=== PATIENT | male | born 1945 | race Caucasian/White ===

== ENCOUNTER 2020-01-01 05:13 | Inpatient (IN) | payer MEDICARE ==
[2020-01-01] VITALS (7 sets, daily range): BP systolic 108–137; BP diastolic 71–112
[~2020-01-01] VITALS: Ht 180.3 cm; Wt 66.2 kg
[2020-01-01 05:44] LABS: BASOPHILS % 0.3 % (0.0-1.0); EOSINOPHILS # (AUTO) 0.1 (0.0-0.4); EOSINOPHILS % 0.9 % (0.0-6.0); HEMATOCRIT 31.9 % (38.2-49.6); HEMOGLOBIN 10.7 g/dL (14.0-18.0); LYMPHOCYTES # (AUTO) 0.8 (1.0-3.2); MEAN CORPUSCULAR HEMOGLOBIN 35.4 pg (28-32); MEAN CORPUSCULAR HGB CONC 33.5 g/dL (31-35); MEAN CORPUSCULAR VOLUME 105.6 fL (81-99); MONOCYTES # (AUTO) 0.6 (0.2-0.8); MONOCYTES % 5.8 % (4.4-11.3); NEUTROPHILS # (AUTO) 8.6 (2.1-6.9); NEUTROPHILS % 84.7 % (38.7-80.0); PLATELET COUNT 189 x10e3/uL (140-360); RED BLOOD COUNT 3.02 x10e6/uL (4.3-5.7); RED CELL DISTRIBUTION WIDTH 11.7 % (11.7-14.4)
--- NOTE | 2020-01-01 05:50 | Emergency Department Note ---
History of Present Illnes History of Present Illness Chief Complaint: General Medicine Complaints History of Present Illness This is a 74 year old male presents to ED with report of hallucinations since last night; pts family reports pt was recently prescribed Haldol and Aricept; pt denies any hallucinations at this time; pt also with mild productive cough for past couple of days. 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 Arrival Mode: [facility] Park [facility] Required: No Onset (how long ago): day(s) (1) Location: none Quality: reported hallucinations Radiation: Reports non-radiation Severity: moderate Onset quality: unable to specify Duration (how long): day(s) (1) Timing of current episode: unable to specify Context: Reports new medications (haldol and aricept); Denies recent illness, Denies recent surgery, Denies trauma/injury Relieving factors: none Exacerbating factors: none Associated symptoms: Reports cough (productive for last couple of days) Treatments prior to arrival: none (MILES GUTIERREZ MD) Past Medical/Family History Physician Review I have reviewed the patient's past medical and family history. Any updates have been documented here. (MILES GUTIERREZ MD) Past Medical History Recent Fever: No Clinical Suspicion of Infectio: No New/Unexplained Change in Ment: No (MILES GUTIERREZ MD) Social History Smoking Cessation: Former smoker Counseling Performed: No Alcohol Use: None Any Illegal Drug Use: No (MILES GUTIERREZ MD) Family History Family history of heart diseas: No (MILES GUTIERREZ MD) Other Any Pre-Existing Lines (PICC,: No (MILES GUTIERREZ MD) Review of Systems Review of Systems Constitutional: Reports no symptoms EENTM: Reports no symptoms Cardiovascular: Reports no symptoms Respiratory: Reports cough Gastrointestinal: Reports no symptoms Genitourinary: Reports no symptoms Musculoskeletal: Reports no symptoms Integumentary: Reports no symptoms Neurological: Reports as per HPI Psychological: Reports no symptoms Endocrine: Reports no symptoms Hematological/Lymphatic: Reports no symptoms (MILES GUTIERREZ MD) Physical Exam Related Data Allergies: Coded Allergies: Sulfa (Sulfonamide Antibiotics) (Verified Allergy, Intermediate, 01/01/20) diphenhydramine (Verified Allergy, Intermediate, 01/01/20) Triage Vital Signs Vital Signs Date Time Temp Pulse Resp B/P (MAP) Pulse Ox O2 Delivery O2 Flow Rate FiO2 01/01/20 05:31 98.9 71 18 133/66 99 Room Air Vital signs reviewed: Yes (MILES GUTIERREZ MD) Physical Exam CONSTITUTIONAL Constitutional: Present well-developed, Present well-nourished; Absent distressed HENT HENT: Present normocephalic, Present atraumatic, Present oropharynx clear/moist, Present nose normal HENT L/R: Present left ext ear normal, Present right ext ear normal EYES Eyes: Reports PERRL, Reports conjunctivae normal NECK Neck: Present ROM normal PULMONARY Pulmonary: Present effort normal, Present breath sounds normal CARDIOVASCULAR Cardiovascular: Present regular rhythm, Present heart sounds normal, Present capillary refill normal, Present normal rate GASTROINTESTINAL Abdominal: Present soft, Present nontender, Present bowel sounds normal GENITOURINARY Genitourinary: Present exam deferred SKIN Skin: Present warm, Present dry MUSCULOSKELETAL Musculoskeletal: Present ROM normal NEUROLOGICAL Neurological: Present alert, Present oriented x 3, Present no gross motor or sensory deficits PSYCHOLOGICAL Psychological: Present mood/affect normal, Present judgement normal (MILES GUTIERREZ MD) Results Laboratory Laboratory Laboratory Tests Test 01/01/20 05:28 (MILES GUTIERREZ MD) Lab results reviewed: Yes Laboratory comments Laboratory Tests Test 01/01/20 06:47 01/01/20 05:28 Urine Color Yellow (YELLOW) Urine Clarity Clear (CLEAR) Urine pH 8 (5 - 7) Urine Specific [place] 1.025 (1.010-1.025) Urine Protein Trace (NEGATIVE) Urine Glucose (UA) Negative (NEGATIVE) Urine Ketones 1+ (NEGATIVE) Urine Blood Negative (NEGATIVE) Urine Nitrite Negative (NEGATIVE) Urine Bilirubin Negative (NEGATIVE) Urine Urobilinogen 0.2 mg/dL (0.2 - 1) Urine Leukocyte Esterase Negative (NEGATIVE) Urine RBC 0-5 /HPF (0-5) Urine WBC 0-5 /HPF (0-5) Urine Epithelial Cells Few /LPF (NONE) Urine Bacteria Rare /HPF (NONE) White Blood Count 10.15 x10e3/uL (4.8-10.8) Red Blood Count 3.02 x10e6/uL (4.3-5.7) Hemoglobin 10.7 g/dL (14.0-18.0) Hematocrit 31.9 % (38.2-49.6) Mean Corpuscular Volume 105.6 fL (81-99) Mean Corpuscular Hemoglobin 35.4 pg (28-32) Mean Corpuscular Hemoglobin Concent 33.5 g/dL (31-35) Red Cell Distribution Width 11.7 % (11.7-14.4) Platelet Count 189 x10e3/uL (140-360) Neutrophils (%) (Auto) 84.7 % (38.7-80.0) Lymphocytes (%) (Auto) 8.0 % (18.0-39.1) Monocytes (%) (Auto) 5.8 % (4.4-11.3) Eosinophils (%) (Auto) 0.9 % (0.0-6.0) Basophils (%) (Auto) 0.3 % (0.0-1.0) Neutrophils # (Auto) 8.6 (2.1-6.9) Lymphocytes # (Auto) 0.8 (1.0-3.2) Monocytes # (Auto) 0.6 (0.2-0.8) Eosinophils # (Auto) 0.1 (0.0-0.4) Basophils # (Auto) 0.0 (0.0-0.1) Absolute Immature Granulocyte (auto 0.03 x10e3/uL (0-0.1) Sodium Level 141 mmol/L (136-145) Potassium Level 3.9 mmol/L (3.5-5.1) Chloride Level 107 mmol/L (98-107) Carbon Dioxide Level 24 mmol/L (22-29) Anion Gap 13.9 mmol/L (8-16) Blood Urea Nitrogen 12 mg/dL (7-26) Creatinine 1.34 mg/dL (0.72-1.25) Estimat Glomerular Filtration Rate 52 ML/MIN (60-) BUN/Creatinine Ratio 9 (6-25) Glucose Level 95 mg/dL (74-118) Calcium Level 10.0 mg/dL (8.4-10.2) Total Bilirubin 0.5 mg/dL (0.2-1.2) Aspartate Amino Transf (AST/SGOT) 21 IU/L (5-34) Alanine Aminotransferase (ALT/SGPT) 33 IU/L (0-55) Alkaline Phosphatase 58 IU/L (40-150) Total Protein 7.3 g/dL (6.5-8.1) Albumin 3.4 g/dL (3.5-5.0) Globulin 3.9 g/dL (2.3-3.5) Albumin/Globulin Ratio 0.9 (0.8-2.0) (EDVIN JENKINS DO) Imaging Imaging results reviewed: Yes Impressions IMPRESSION: Lateral right upper lobe mild haziness, could be artifactual due to overlying soft tissue attenuation or represent pneumonia in the appropriate clinical context. Right lower lobe linear atelectasis/scarring. Signed by: Dr. Michael Bond MD on 01/01/2020 6:51 AM Imaging Comments IMPRESSION: No acute intracranial abnormality. Mild supratentorial white matter microvascular ischemic changes. 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 Signed by: Dr. Sophia Cifuentes M.D. on 01/01/2020 6:33 AM (EDVIN JENKINS DO) Procedures 12 Lead ECG Interpretation ECG Interpretation : ECG: ECG 1 Park Guard: Interpreted by ED physician Date: Jan 01, 2020 Time: 05:24 Rhythm: sinus rhythm Rate: normal BPM: 68 Conduction: bifascicular block ST segments normal: No (non specific changes) T waves normal: Yes Clinical Impression: abnormal ECG (MILES GUTIERREZ MD) Assessment & Plan Medical Decision Making MDM pt with h/o parkinson's recently started on aricept and haldol with reported hallucinations all night last night, was talking to people who were not there cbc, cmp, ua, cxr, ct brain ordered to eval for electrolyte abnormality, uti, pneumonia, intracranial pathology(mass, cva, bleed), [address] jenkins labs, cxr, ct brain pending (MILES GUTIERREZ MD) MDM Signout obtained from Dr. Gutierrez to follow-up lab work and imaging. Patient with underlying dementia sent to the ED for hallucinations. Patient's chest x- ray concerning for pneumonia and proceeding may be a cause of exacerbation of his dementia leading to hallucinations. Patient was admitted for IV antibiotics, family informed. Patient stable at time of admission. (EDVIN JENKINS DO) Assessment & Plan Final Impression: (1) Hallucinations (2) Parkinson disease (MILES GUTIERREZ MD) Depart Disposition: ADMITTED Last Vital Signs Date Time Temp Pulse Resp B/P (MAP) Pulse Ox O2 Delivery O2 Flow Rate FiO2 10/19/20 05:31 98.9 71 18 133/66 99 Room Air (MILES GUTIERREZ MD) MILES GUTIERREZ MD Jan 01, 2020 05:50 EDVIN JENKINS DO Jan 01, 2020 08:20
[2020-01-01 05:58] LABS: ALBUMIN 3.4 g/dL (3.5-5.0); ALBUMIN/GLOBULIN RATIO 0.9 (0.8-2.0); ANION GAP 13.9 mmol/L (8-16); CREATININE, SERUM 1.34 mg/dL (0.72-1.25); POTASSIUM 3.9 mmol/L (3.5-5.1)
--- OUTSIDE RECORDS SUMMARY | 2020-01-01 06:06 | XMS REPORT | Clinical Summary ---
Author Author [facility] Organization [facility] Address Unknown Phone Unavailable Care Team Providers Care Tipple Worker Name Role Phone Bev Ramirez MD PCP Allergies Comments Active Allergy Reactions Severity Noted Date Diphenhydramine Hcl Hives Medium 05/01/2015 Sulfa (Sulfonamide Hives Medium 05/01/2015 Antibiotics) Sulfur-8 Hives Medium 05/23/2015 Medications End Date Status Medication Sig Dispensed Refills Start Date Active cetirizine (ZyrTEC) 10 MG Take 10 mg by 0 tablet mouth daily. Active cholecalciferol, vitamin Take 2,000 0 D3, (VITAMIN D3) 2,000 Units by unit capsule capsule mouth daily. Active vitamin V26-ssccz acid Take by mouth 0 0.5-1 mg tablet as needed. Active FLONASE ALLERGY RELIEF 50 1 spray by 0 / 5 mcg/actuation nasal spray Each Nare 8 route as needed. Active tiotropium (SPIRIVA) 18 Place 1 0 mcg per inhalation capsule into capsule inhaler and inhale once daily. Active fexofenadine (HECTOR) Take 180 mg 0 180 MG tablet by mouth daily. Active benzonatate (TESSALON) Take 100 mg 0 100 MG capsule by mouth 3 (three) times a day as needed for cough. Active ezetimibe-simvastatin TAKE 1 TABLET 90 tablet 2 (VYTORIN) 10-40 mg per BY MOUTH 0 tablet EVERY DAY Active Symbicort 160-4.5 TAKE 2 PUFFS 3 Inhaler 2 07/30/ 02 mcg/actuation inhaler BY MOUTH 0 TWICE A DAY Active buPROPion XL (WELLBUTRIN TAKE 1 TABLET 90 tablet 4 XL) 150 MG 24 hr tablet BY MOUTH 0 EVERY DAY 05/09/2019 Discontinued ezetimibe-simvastatin TAKE 1 TABLET 90 tablet 2 06 /10/201 (VYTORIN) 10-40 mg per BY MOUTH 9 tablet EVERY DAY 06/12/2019 Discontinued SYMBICORT 160-4.5 INHALE 2 10.2 Inhaler 6 01 mcg/actuation inhaler PUFFS 2 (TWO) 9 TIMES A DAY. 11/08/2019 Discontinued buPROPion XL (WELLBUTRIN TAKE 1 TABLET 30 tablet 11 XL) 150 MG 24 hr tablet BY MOUTH 9 EVERY DAY 07/31/2019 Discontinued Symbicort 160-4.5 INHALE 2 1 Inhaler 2 06/12/19 2 mcg/actuation inhaler PUFFS 2 (TWO) 0 TIMES A DAY. 12/04/2019 Discontinued buPROPion XL (WELLBUTRIN TAKE 1 TABLET 30 tablet 11 XL) 150 MG 24 hr tablet BY MOUTH 0 EVERY DAY Active Problems Problem Noted Date History of colon polyps 10/06/2018 Overview: Added automatically from request for christiano escobar [id number] Intestinal mass 10/01/2017 Abnormal cardiovascular stress test 05/11/2015 Atherosclerosis of coronary artery 05/11/2015 Atopic rhinitis 05/01/2015 Bronchitis 05/01/2015 Cough 05/01/2015 Echocardiogram abnormal 05/01/2015 Abnormal electrocardiogram 05/01/2015 Hearing loss 05/01/2015 Episodic mood disorder 05/01/2015 Hypercholesteremia 05/01/2015 Pain in wrist 05/01/2015 Reactive airway disease 05/01/2015 Encounters Care Team Description Date Type Specialty Sara Harris MA 12/20/2019 Telephone Hematology Bev Ramirez MD 12/04/2019 Refill Internal Medicine Omar Gillespie MA Anemia, unspecified type (Primary Dx) 11/16/2019 Orders Only Internal Medicine Bev Ramirez MD Macrocytic anemia (Primary Dx) 11/16/2019 Orders Only Internal Medicine Bev Ramirez MD 11/08/2019 Refill Internal Medicine Bev Ramirez MD Macrocytosis (Primary Dx); Tremor; Depression, unspecified depression type; Chronic bronchitis, unspecified chronic bronchitis type (HCC) 10/31/2019 Telemedicine Internal Medicine Bev Ramirez MD 07/31/2019 Refill Internal Medicine Bev Ramirez MD Encounter for general adult medical exam ination with abnormal findings (Primary Dx); Depression, unspecified depression type; Chronic bronchitis, unspecified chronic bronchitis type (HCC); Hyperlipidemia, unspecified hyperlipidemia type; B12 deficiency 07/28/2019 Telemedicine Internal Medicine 07/05/2019 Travel Bev Ramirez MD 06/10/2019 Refill Internal Medicine eBv Ramirez MD 05/09/2019 Refill Internal Medicine Bev Ramirez MD Tremor (Primary Dx); Mood disorder (HCC); Depression, unspecified depression type; Chronic bronchitis, unspecified chronic bronchitis type (HCC); Allergic rhinitis, unspecified seasonality, unspecified trigger; Pain of left hand 01/27/2019 Office Visit Internal Medicine after 12/31/2018 Immunizations Name Administration Dates Next Due FLUZONE HIGH-DOSE PF 11/24/2018, 12/23/2015, , 03/15/2013 Influenza, Unspecified 12/22/2017 Pneumococcal Conjugate 05/16/2014 13-Valent Pneumococcal 05/23/2015 Polysaccharide Tdap 05/16/2014 Zoster 12/25/2014 Zoster Vaccine 01/24/2019 Recombinant Surgical History Surgery Date Site/Laterality Comments FOOT SURGERY 03/15/2011 - Bilateral x2 fusion bone together, right foot 2008 03/14/2012 HAND SURGERY 03/15/1979 - Bilateral x2 1979 and 198 0 03/14/1980 VASECTOMY 03/15/1974 - 03/14/1975 REPAIR, HERNIA, INGUINAL 06/09/2016 Groin/Right Proce dure: OPEN RIGHT INGUINALHERNIA REPAIR; Surgeon: Barron Cancino MD; Lo cation: [facility]; Service: General; Laterality : Right; Medical devices from this surgery are i n the Implants section. COLONOSCOPY 09/14/2017 N/A Procedure: colo noscopy with bx and injected 4cc of spot to ricardo mass; Surgeon: Samantha Rasheed MD; Location: [facility]; Service : Gastroenterology; Laterality: N/A; diverticulosis, colon mass, hemorrhoids HEMICOLECTOMY, RIGHT, 10/01/2017 Abdomen/N/A Procedur e: LAPAROSCOPIC RIGHT HEMICOLECTOMY; LAPAROSCOPIC Surgeon: Barron Cancino MD; Location: [facility]; Service: General; Laterality : N/A; Medical devices from this surgery are i n the Implants section. COLONOSCOPY COLONOSCOPY 10/21/2018 N/A Procedure: COLO NOSCOPY with bx; Surgeon: Samantha Rasheed MD; Location: [facility]; Service: Gastroenterology; Laterality: N/A; diverticulosis, colon polyp,internal he morrhoids, extent reached is anastamosis Medical History Medical History Date Comments Atopic rhinitis 05/01/2015 Bronchitis 05/01/2015 Echocardiogram abnormal 05/01/2015 Abnormal electrocardiogram 05/01/2015 Hearing loss 05/01/2015 hearing aide alen Hypercholesteremia 05/01/2015 Reactive airway disease 05/01/2015 Abnormal cardiovascular stress test 05/11/2015 Anesthesia Pt....nphap. CFROM / Family .....nfhap Exercises daily walking x 30 mins....denies problems Anemia Arthritis hands Anxiety medication managed CAD (coronary artery disease) RCA Cancer (HCC) h/o skin cancers Uses hearing aid Colon polyp TUBULAR ADENOMA Family History Medical History Relation Name Comments Balta disease Brother No Known Problems Brother CABG/Stent Father No Known Problems Sister Relation Name Status Comments Brother Brother Father Mother Sister Alive Social History Date Tobacco Use Types Packs/Day Years Used Quit: 06/09/1997 Former Smoker Cigarettes, 0.25 12 Electronic Cigarettes Smokeless Tobacco: Never Used Tobacco Cessation: Ready to Quit: Yes; C ounseling Given: Yes Comments: recently quit 03/2017 Drinks/Week oz/Week Comments Alcohol Use rare Yes Sex Assigned at Date Recorded Not on file Last Filed Vital Signs Reading Time Taken Comments Vital Sign 128/72 10/30/2019 1:23 PM CDT Blood Pressure 67 01/27/2019 10:38 AM TEMPERER Pulse 36.4 C (97.6 F) 01/27/2019 10:38 AM TEMPERER Temperature 16 01/27/2019 10:38 AM TEMPERER Respiratory Rate 97% 01/27/2019 10:38 AM TEMPERER Oxygen Saturation - - Inhaled Oxygen Concentration 73.9 kg (163 lb) 10/30/2019 1:23 PM CDT Weight 180.3 cm (5' 11") 10/30/2019 1:23 PM CDT Height 22.73 10/30/2019 1:23 PM CDT Body Mass Index Plan of Treatment Health Maintenance Due Date Last Done Comments INFLUENZA VACCINE 10/14/2019 11/24/2018, 12/22/2017, 12/23/2015, Additional history exists COLONOSCOPY SCREENING 09/27/2027 09/26/2017 65+ PNEUMOCOCCAL VACCINE Completed 05/23/2015, 05/16/2014 SHINGLES VACCINES Completed 01/24/2019, 12/25/2014 Implants Device Identifier Shelf Expiration Date Model / Serial / L ot Implanted Type Area Manufactur er 11/09/2020 [id number] / / Bard Mesh Perfix Plugs Large Perfix IPM GRAFTS Right: Leslee in DAVOL, A Plug,1.6&Quot; X 1.90&Quot; (4.1cm BARD X 4.8cm) - [id number] Implanted: Qty: 1 on 06/09/2016 by Barron Cancino MD at [facility] [id number] / / Clip Ligtng Weck Hemoclip Plus W/ Medical N/A: N/A WECK Tape Ti Med Lg - [id number] Clips for CLOSURE Implanted: Qty: 1 on 10/01/2017 by Internal SYS TEMS Barron Cancino MD at [facility] [id number] / / Clip Ligtng Weck Hemoclip Plus W/ Medical N/A: N/A TELEFLEX Tape Ti Lg - [id number] Clips for MEDICAL Implanted: Qty: 1 on 10/01/2017 by Internal Barron Cancino MD at [facility] [id number] / / Clip Ligtng Weck Hemoclip Plus W/ Medical N/A: N/A TELEFLEX Tape Ti Lg - [id number] Clips for MEDICAL Implanted: Qty: 1 on 10/01/2017 by Internal Barron Cancino MD at [facility] 10/12/2021 [id number] / / [id number] [employer] Titanium Ligating Clips, Surgical N/A: N/A Medium (Cartridge Of 6 Clips, Pack Fixation Of 30 Cartridges) Device Implanted: Qty: 1 on 10/01/2017 by Barron Cancino MD at [facility] [id number] / / Clip Ligtng Hrzn Med Ti Strl 6ea/Cq Surgical N/A: N/A WECK - [id number] Implants; CLOSURE Implanted: Qty: 1 on 10/01/2017 by Expanders; SYS TEMBarron Baumann MD at [facility] Extenders; HOSPITAL Surgical Wires Procedures Comments Procedure Name Priority Date/Time Associated Diag nosis COMPREHENSIVE METABOLIC Routine 11/15/2019 Macroc ytosis PANEL 9:15 AM CDT CBC WITH PLATELET AND Routine 11/15/2019 Macrocyt osis DIFFERENTIAL 9:15 AM CDT VITAMIN B12 LEVEL Routine 08/01/2019 Encounter fo r general 10:31 AM CDT adult medical examination with abnormal findings Depression, unspecified depression type Chronic bronchitis, unspecified chronic bronchitis type (HCC) Hyperlipidemia, unspecified hyperlipidemia type B12 deficiency THYROID STIMULATING Routine 08/01/2019 Encounter for general HORMONE 10:31 AM CDT adult medical exami [facility] with abnormal findings Depression, unspecified depression type Chronic bronchitis, unspecified chronic bronchitis type (HCC) Hyperlipidemia, unspecified hyperlipidemia type B12 deficiency URINALYSIS, COMPLETE, Routine 08/01/2019 Encounte r for general WITH REFLEX TO CULTURE 10:31 AM CDT adult medical examination with abnormal findings Depression, unspecified depression type Chronic bronchitis, unspecified chronic bronchitis type (HCC) Hyperlipidemia, unspecified hyperlipidemia type B12 deficiency LIPID PANEL Routine 08/01/2019 Encounter for g eneral 10:31 AM CDT adult medical examination with abnormal findings Depression, unspecified depression type Chronic bronchitis, unspecified chronic bronchitis type (HCC) Hyperlipidemia, unspecified hyperlipidemia type B12 deficiency COMPREHENSIVE METABOLIC Routine 08/01/[address] for general PANEL 10:31 AM CD[facility] Depression, unspecified depression type Chronic bronchitis, unspecified chronic bronchitis type (HCC) Hyperlipidemia, unspecified hyperlipidemia type B12 deficiency CBC HEMOGRAM Routine 08/01/2019 Encounter for g eneral 10:31 AM CDT adult medical examination with abnormal findings Depression, unspecified depression type Chronic bronchitis, unspecified chronic bronchitis type (HCC) Hyperlipidemia, unspecified hyperlipidemia type B12 deficiency after 12/31/2018 Results * CBC with platelet and differential (11/15/2019 9:15 AM CDT) Pathologist [facility] WBC 5.8 3.8 - 10.8 [facility] Thousand/uL [facility] [place] RBC 3.32 (L) 4.20 - 5.80 [facility] Million/uL [facility] [place] HGB 11.9 (L) 13.2 - 17.1 g/dL [facility] [place] HCT 33.8 (L) 38.5 - 50.0 % [facility] [employer] [place] MCV 101.8 (H) 80.0 - 100.0 fL [facility] [place] MCH 35.8 (H) 27.0 - 33.0 pg [facility] [place] MCHC 35.2 32.0 - 36.0 g/dL [facility] [place] RDW 11.5 11.0 - 15.0 % [facility] [place] Platelet count 223 140 - 400 [facility] Thousand/uL [facility] [place] MPV 9.5 7.5 - 12.5 fL [facility] [employer] [place] Neutrophils, 3,666 1,500 - 7,800 [facility] absolute cells/uL [facility] [place] Lymphocytes, 1,357 850 - 3,900 cells/uL [facility] absolute [facility] [place] Monocytes, 429 200 - 950 cells/uL [facility] absolute [facility] [place] Eosinophils, 319 15 - 500 cells/uL [facility] absolute [facility] [place] Basophils, 29 0 - 200 cells/uL [facility] absolute [facility] [place] Neutrophils 63.2 % [employer] [place] Lymphocytes 23.4 % [employer] [place] Monocytes 7.4 % [facility] [place] Eosinophils 5.5 % [facility] [employer] [place] Basophils + RC 0.5 % [employer] [place] Specimen Blood Narrative Performed At FASTING:YES [facility] FASTING: YES Resulting Agency Comment Performing Organization Information: Site ID: RGA Name: [facility] Address: [address] [place] [phone] Director: Baldev Briscoe Performing Organization Address City/State/ZIP Code P lico Number [facility] [email or web address] [address] [phone] * Comprehensive metabolic panel (11/15/2019 9:15 AM CDT) Only the most recent of 2 results within the time period is included. Glucose 102 (H) 65 - 99 mg/dL [facility] Comment: DIAGNOSTICS Fasting [place] reference interval For someone without known diabetes, a glucose value between 100 and 125 mg/dL is consistent with prediabetes and should be confirmed with a follow-up test. BUN 14 7 - 25 mg/dL [facility] Creatinine 1.21 (H) 0.70 - 1.18 mg/dL [facility] Comment: DIAGNOSTICS For patients >49 years of age, [place] the reference limit for Creatinine is approximately 13% higher for people identified as -Azerbaijani. EGFR Non-Afr. 59 (L) > OR = 60 [facility] Azerbaijani mL/min/1.73m2 [facility] [place] EGFR 68 > OR = 60 [facility] Azerbaijani mL/min/1.73m2 [facility] [place] BUN/creatinine 12 6 - 22 (calc) [facility] ratio [facility] [place] Sodium 138 135 - 146 mmol/L [facility] [place] Potassium 4.4 3.5 - 5.3 mmol/L [facility] [place] Chloride 106 98 - 110 mmol/L [facility] [place] CO2 26 20 - 32 mmol/L [facility] [place] Calcium 9.9 8.6 - 10.3 mg/dL [facility] [place] Protein 6.9 6.1 - 8.1 g/dL [facility] [place] Albumin, S 4.0 3.6 - 5.1 g/dL [facility] [place] Globulin, total 2.9 1.9 - 3.7 g/dL [facility] (calc) [facility] [place] Albumin/globuli 1.4 1.0 - 2.5 (calc) [facility] n ratio [facility] [place] Total bilirubin 0.4 0.2 - 1.2 mg/dL [facility] [place] Alkaline 38 35 - 144 U/L [facility] phosphatase [facility] [place] AST 25 10 - 35 U/L [facility] [place] ALT 21 9 - 46 U/L [facility] [place] Specimen Blood Narrative Performed At FASTING:YES [facility] FASTING: YES Resulting Agency Comment Performing Organization Information: Site ID: [id number] Name: [facility] Address: [address] [place] [phone] Director: Baldev Briscoe Performing Organization Address City/State/ZIP Code P lico Number [facility] [email or web address] [address] [phone] * URINALYSIS, COMPLETE, WITH REFLEX TO CULTURE (08/01/2019 10:31 AM CDT) Color, UA YELLOW YELLOW [facility] [place] Appearance CLEAR CLEAR [facility] [place] Specific 1.022 1.001 - 1.035 [facility] gravity, urine [facility] [place] pH, urine 6.0 5.0 - 8.0 [facility] [place] Glucose, urine NEGATIVE NEGATIVE [facility] [place] Bilirubin, UA NEGATIVE NEGATIVE [facility] [place] Ketones, UA NEGATIVE NEGATIVE [facility] [place] Occult blood, NEGATIVE NEGATIVE [facility] urine [facility] [place] Protein, UA NEGATIVE NEGATIVE [facility] [place] Nitrite, UA NEGATIVE NEGATIVE [facility] [place] Leukocyte NEGATIVE NEGATIVE [facility] esterase, UA [facility] [place] WBC, UA NONE SEEN < OR = 5 /HPF [facility] [place] RBC, UA NONE SEEN < OR = 2 /HPF [facility] [place] Squamous NONE SEEN < OR = 5 /HPF [facility] epithelial DIAGNOSTICS cells, UA [place] Bacteria, UA NONE SEEN NONE SEEN /HPF [facility] [place] Hyaline casts, NONE SEEN NONE SEEN /LPF [facility] UA [facility] [place] Reflex NO CULTURE INDICATED [facility] [place] Specimen Narrative Performed At FASTING:YES [facility] FASTING: YES Resulting Agency Comment Performing Organization Information: Site ID: RGA Name: [facility] Address: [address] [place] [phone] Director: Baldev Briscoe Performing Organization Address City/State/ZIP Code P lico Number [employer] [address] [phone] * CBC hemogram (08/01/2019 10:31 AM CDT) WBC 5.7 3.8 - 10.8 [facility] Thousand/uL [facility] [place] RBC 3.56 (L) 4.20 - 5.80 [facility] Million/uL [facility] [place] HGB 12.6 (L) 13.2 - 17.1 g/dL [facility] [place] HCT 36.6 (L) 38.5 - 50.0 % [facility] [place] MCV 102.8 (H) 80.0 - 100.0 fL [facility] [place] MCH 35.4 (H) 27.0 - 33.0 pg [facility] [place] MCHC 34.4 32.0 - 36.0 g/dL [facility] [place] RDW 11.6 11.0 - 15.0 % [facility] [place] Platelet count 215 140 - 400 [facility] Thousand/uL [facility] [place] MPV 9.5 7.5 - 12.5 fL [facility] [place] Specimen Blood Narrative Performed At FASTING:YES [facility] FASTING: YES Resulting Agency Comment Performing Organization Information: Site ID: RGA Name: [facility] Address: [address] [place] [phone] Director: Baldev Briscoe Performing Organization Address City/State/ZIP Code P lico Number [employer] [address] [phone] * Thyroid stimulating hormone (08/01/2019 10:31 AM CDT) TSH 2.42 0.40 - 4.50 mIU/L [facility] Specimen Blood Narrative Performed At FASTING:YES [facility] FASTING: YES Resulting Agency Comment Performing Organization Information: Site ID: Heath Name: [facility] Lab Address: [address] [place] [phone] Director: Baldev Briscoe Performing Organization Address [facility] P lico Number [employer] [place] [phone] * Vitamin B12 level (08/01/2019 10:31 AM CDT) Vitamin B12 364 200 - 1,100 pg/mL [facility] Comment: DIAGNOST[facility] Please Note: Although the [place] reference range for vitamin B12 is 200-1100 pg/mL, it has been reported that between 5 and 10% of patients with values between 200 and 400 pg/mL may experience neuropsychiatric and hematologic abnormalities due to occult B12 deficiency; less than 1% of patients with values above 400 pg/mL will have symptoms. Specimen Blood Narrative Performed At FASTING:YES [facility] FASTING: YES Resulting Agency Comment Performing Organization Information: Site ID: Heath Name: [email or web address] [facility] Lab Address: [address] [place] [phone] Director: Baldev Briscoe Performing Organization Address [facility] P lico Number [employer] [place] [phone] * Lipid panel (08/01/2019 10:31 AM CDT) Cholesterol, 117 <200 mg/dL [facility] total [facility] [place] HDL cholesterol 43 > OR = 40 mg/dL [facility] Triglycerides 85 <150 mg/dL [facility] LDL cholesterol 57 mg/dL (calc) [facility] calculated Comment: DIAGNOSTICS Reference range: <100 [place] Desirable range <100 mg/dL for primary prevention; <70 mg/dL for patients with CHD or diabetic patients with > or = 2 CHD risk factors. LDL-C is now calculated using the Bo calculation, which is a validated novel method providing better accuracy than the Friedewald equation in the estimation of LDL-C. Earl SAVAGE et al. SHIVAM. 2013;310(19): 2994-3895 (http://education.Weave.HowDo/faq/IMA381) Cholesterol/HDL 2.7 <5.0 (calc) [facility] ratio [facility] [place] Non-HDL 74 <130 mg/dL (calc) [facility] cholesterol Comment: DIAGNOSTICS For patients with diabetes [place] plus 1 major ASCVD risk factor, treating to a non-HDL-C goal of <100 mg/dL (LDL-C of <70 mg/dL) is considered a therapeutic option. Specimen Blood Narrative Performed At FASTING:YES [facility] FASTING: YES Resulting Agency Comment Performing Organization Information: Site ID: RGA Name: [facility] Address: [address] [place] [phone] Director: Baldev Briscoe Performing Organization Address City/State/ZIP Code P lico Number [employer] [place] [address] [place] [phone] after 12/31/2018 Insurance Type Payer Benefit Subscriber ID Effective Phone Address Plan / Dates Group PPO HUMANA MEDICARE HUMANA [id number] 2012-P MEDICARE resent PPO/PFFS/E RS [facility] Advance Directives For more information, please contact: [phone] 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
--- OUTSIDE RECORDS SUMMARY | 2020-01-01 06:06 | XMS REPORT | Continuity of Care Document ---
Author Author [facility] t Organization [facility] Address [address] [place] [address] Phone Unavailable Care Team Providers Care Stove Polisher Name Role Phone James FOSTER, Maulik PCP Steven RENE, Sara Attphys Unavailable Maulik Ramirez MD Attphys Verna RENE, Omar Attphys Unavailable Payers Payer Name Policy Type Policy Number Effective Date Expiration Date S [facility]ERS [id number] 2012 00:00:00 Darrel Gipson Problems Condition Name Condition Details Condition Category Status Onset Date Resolution Date Last Treatment Date Treating Clinician Comments Source History of colon polyps History of colon polyps Disease Active 2018-10-06 00:00:00 Overview: Added automaticall y from request for surgery [id number] Darrel Gipson Intestinal mass Intestinal mass Disease Active 2017-10-01 00:00:00 Darrel Gipson Abnormal cardiovascular stress test Abnormal cardiovascular stre ss test Disease Active 2015-05-11 00:00:00 Anderson Gipson Atherosclerosis of coronary artery Atherosclerosis of coronary a rtery Disease Active 2015-05-11 00:00:00 Anderson Gipson Atopic rhinitis Atopic rhinitis Disease Active 2015-05-01 00:00:00 Darrel Gipson Bronchitis Bronchitis Disease Active 2015-05-01 00:00:00 Darrel Gipson Cough Cough Disease Active 2015-05-01 00:00:00 Darrel Gipson Echocardiogram abnormal Echocardiogram abnormal Disease Active 2015-05-01 00:00:[address] Abnormal electrocardiogram Abnormal electrocardiogram Disease Active 2015-05-01 00:00:[address] Hearing loss Hearing loss Disease Active 2015-05-01 00:00:00 Darrel Gipson Episodic mood disorder Episodic mood disorder Disease Active 2015-05-01 00:00:[address] Hypercholesteremia Hypercholesteremia Disease Active 2015-05-01 00:00:0 0 Darrel Gipson Pain in wrist Pain in wrist Disease Active 2015-05-01 00:00:00 Darrel Gipson Reactive airway disease Reactive airway disease Disease Active 2015-05-01 00:00:[address] Allergies, Adverse Reactions, Alerts Allergy Name Allergy Type Status Severity Reaction(s) Onset Date Inacti ve Date Treating Clinician Comments Source Sulfur-8 Propensity to adverse reactions to drug Active Hives 2015-05-23 00:00:00 Darrel Buck[address] Diphenhydramine Hcl Propensity to adverse reactions to drug Active Hives 2015-05-01 00:00:00 Darrel Meth odist Sulfa (Sulfonamide Antibiotics) Propensity to adverse reactions to drug Active Hives 2015-05-01 00:00:00 Anderson Gipson Family History Family Member Diagnosis Comments Start Date Stop Date Source Natural brother Balta disease Zakia portillo Hindu Natural brother No Known Problems Vishnu Gipson Natural father CABG/Stent [facility] thodist Natural sister No Known Problems Kendall Gipson Social History Social Habit Start Date Stop Date Quantity Comments Source Sex Assigned At Kendall Gipson Cigarettes smoked current (pack per day) - Reported 00:00:00 2019-10-30 00:00:00 Darrel Gipson Cigarette pack-years 2019-10-30 00:00:00 2019-10-30 00:00:00 Darrel Gipson Tobacco use and exposure 2019-10-30 00:00:00 2019-10-30 00:00:00 Ambrose r used Darrel Gipson Alcohol intake 2019-10-30 00:00:00 2019-10-30 00:00:00 Current drinker of alcohol (finding) Darrel Gipson Tobacco Comment 2017-09-20 00:00:00 2017-09-20 00:00:00 recently quit 03/2017 Darrel Gipson Alcohol Comment 2016-05-05 00:00:00 2016-05-05 00:00:00 rare Darrel Gipson History of tobacco use 1997-06-09 00:00:00 Current smoker Darrel Gipson Smoking Status Start Date Stop Date Source Former smoker 2019-10-30 00:00:00 2019-10-30 00:00:00 Darrel Gipson Medications Ordered Medication Name Filled Medication Name Start Date Stop Da te Current Medication? Ordering Clinician Indication Dosage Frequency Signature (SIG) Comments Components Source buPROPion XL (WELLBUTRIN XL) 150 MG 24 hr tablet 2019-12-04 00:00:00 Yes TAKE 1 TABLET BY MOUTH EVERY DAY Darrel Gipson buPROPion XL (WELLBUTRIN XL) 150 MG 24 hr tablet 2019-11-08 00:00:00 2019-12-04 00:00:00 No TAKE 1 TABLET BY JESSICA TH EVERY DAY Darrel Gipson cetirizine (ZyrTEC) 10 MG tablet 2019-10-30 13:25:05 Yes 10mg QD Take 10 mg by mouth daily. Darrel Gipson cholecalciferol, vitamin D3, (VITAMIN D3) 2,000 unit capsule capsule 2019-10-30 13:25:05 Yes 2000U QD Take 2,000 Units b y mouth daily. Darrel Gipson vitamin S45-ljznc acid 0.5-1 mg tablet 2019-10-30 13:25:05 Yes Take by mouth as needed. Darrel Gipson tiotropium (SPIRIVA) 18 mcg per inhalation capsule 2019-10 13:25:05 Yes 1{capsule} QD Place 1 capsule into inhaler and inhale once daily. Darrel Gipson fexofenadine (HECTOR) 180 MG tablet 2019-10-30 13:25:05 Ye s 180mg QD Take 180 mg by mouth daily. Darrel gomez benzonatate (TESSALON) 100 MG capsule 2019-10-30 13:25:05 Yes 100mg Q.[id number] Take 100 mg by mouth 3 (three) times a d ay as needed for cough. Darrel Gipson Symbicort 160-4.5 mcg/actuation inhaler 2019-07-31 00:00:00 Yes TAKE 2 PUFFS BY MOUTH TWICE A DAY Darrel moore Symbicort 160-4.5 mcg/actuation inhaler 00:00:00 2019-07-31 00:00:00 No INHALE 2 PUFFS 2 (TWO) TIMES A DAY. Darrel Gipson ezetimibe-simvastatin (VYTORIN) 10-40 mg per tablet 05-09 00:00:00 Yes TAKE 1 TABLET BY MOUTH EVERY DAY Darrel Gipson buPROPion XL (WELLBUTRIN XL) 150 MG 24 hr tablet 2018-12-07 00:00:00 2019-11-08 00:00:00 No TAKE 1 TABLET BY JESSICA TH EVERY DAY Darrel Gipson SYMBICORT 160-4.5 mcg/actuation inhaler 00:00:00 2019-06-12 00:00:00 No INHALE 2 PUFFS 2 (TWO) TIMES A DAY. Darrel Gipson ezetimibe-simvastatin (VYTORIN) 10-40 mg per tablet 2018-08-22 00:00:00 2019-05-09 00:00:00 No TAKE 1 TABLET BY JESSICA TH EVERY DAY Darrel Gipson FLONASE ALLERGY RELIEF 50 mcg/actuation nasal spray 08-17 00:00:00 Yes 1{spray} 1 spray by Each Nare route as needed. Darrel Gipson Immunizations Ordered Immunization Name Filled Immunization Name Date Status Comments Source Zoster Vaccine Recombinant 2019-01-24 00:00:00 Completed Darrel Gipson FLUZONE HIGH-DOSE PF 2018-11-24 00:00:00 Completed Darrel Gipson Influenza, Unspecified 2017-12-22 00:00:00 Completed Darrel Gipson FLUZONE HIGH-DOSE PF 2015-12-23 00:00:00 Completed Darrel Gipson Pneumococcal Polysaccharide 2015-05-23 00:00:00 Completed Darrel Gipson FLUZONE HIGH-DOSE PF 2015-01-04 00:00:00 Completed Darrel Gipson Zoster 2014-12-25 00:00:00 Completed [place] Pneumococcal Conjugate 13-Valent 2014-05-16 00:00:00 Compl eted Darrel Gipson Tdap 2014-05-16 00:00:00 Completed [place] FLUZONE HIGH-DOSE PF 2013-03-15 00:00:00 Completed Darrel Gipson Vital Signs Vital Name Observation Time Observation Value Comments Source Systolic blood pressure 2019-10-30 13:23:00 128 mm[Hg] Darrel Gipson Diastolic blood pressure 2019-10-30 13:23:00 72 mm[Hg] Darrel Gipson Body height 2019-10-30 13:23:00 180.3 cm Darrel Gipson Body weight 2019-10-30 13:23:00 73.936 kg Darrel Gipson BMI 2019-10-30 13:23:00 22.73 kg/m2 Darrel Gipson Heart rate 2019-01-27 10:38:00 67 /min Darrel Gipson Body temperature 2019-01-27 10:38:00 36.44 Charlene Zakia portillo Hindu Respiratory rate 2019-01-27 10:38:00 16 /min Zakia portillo Hindu Oxygen saturation in Arterial blood by Pulse oximetry 2018-03 10:38:00 97 /min Darrel Gipson Procedures Procedure Date / Time Performed Performing Clinician [facility] e CBC WITH PLATELET AND DIFFERENTIAL 2019-11-15 09:15:00 Maulik Berry COMPREHENSIVE METABOLIC PANEL 2019-11-15 09:15:00 Gloria Ramirez CBC HEMOGRAM 2019-08-01 10:31:00 Maulik Ramirez COMPREHENSIVE METABOLIC PANEL 2019-08-01 10:31:00 Gloria Ramirez LIPID PANEL 2019-08-01 10:31:00 Maulik Ramirez URINALYSIS, COMPLETE, WITH REFLEX TO CULTURE 2019-08-01 10:3 1:00 Maulik Ramirez THYROID STIMULATING HORMONE 2019-08-01 10:31:00 Jazz Ramirez VITAMIN B12 LEVEL 2019-08-01 10:31:00 Maulik Ramirez Plan of Care Planned Activity Planned Date Details Comments Source Future Scheduled Test 2027-09-27 00:00:00 COLONOSCOPY SCREEN ING [code = COLONOSCOPY SCREENING] Darrel Gipson Future Scheduled Test 2019-10-14 00:00:00 INFLUENZA VACCINE [code = INFLUENZA VACCINE] Darrel Gipson Encounters Start Date/Time End Date/Time Encounter Type Admission Type [facility] Care Department Encounter ID Source 2019-10-30 00:00:00 2019-10-31 00:00:00 Outpatient MAULIK BERRY [facility] [id number] Darrel Gipson 2019-07-28 00:00:00 2019-07-28 00:00:00 Outpatient MAULIK BERRY [facility] [id number] Darrel Gipson Results Test Description Test Time Test Comments Results Result Comments Source Comprehensive metabolic panel 2019-11-15 21:29:00 Test Item Glucose (test code = 2345-7) 102 mg/dL 65-99 H Fasting reference interval For someone without known diabetes, a glucose valuebetween 100 and 125 mg/dL is consistent withprediabetes and should be confirmed with afollow-up test. BUN (test code = 3094-0) 14 mg/dL 7-25 Creatinine (test code = 2160-0) 1.21 mg/dL 0.7-1.18 H For patients >49 years of age, the reference limitfor Creatinine is approximately 13% higher for peopleidentified as -Nicaraguan. EGFR Non-Afr. [place]ar[place]uan (test code = 2775) 59 > OR = 60 mL /min/1.73m2 L EGFR (test code = 38237-1) 68 > OR = 60 mL/min/1.73m2 BUN/creatinine ratio (test code = 3097-3) 12 6- 22 (calc) Sodium (test code = 2951-2) 138 mmol/L 135-146 Potassium (test code = 2823-3) 4.4 mmol/L 3.5-5.3 Chloride (test code = 2074-0) 106 mmol/L 98-110 CO2 (test code = 2027-9) 26 mmol/L 20-32 Calcium (test code = 09257-2) 9.9 mg/dL 8.6-10.3 Protein (test code = 2885-2) 6.9 g/dL 6.1-8.1 Albumin, S (test code = 1751-7) 4.0 g/dL 3.6-5.1 Globulin, total (test code = 47921-5) 2.9 1.9- 3.7 g/dL (c alc) Albumin/globulin ratio (test code = 1759-0) 1.4 1.0- 2.5 ( calc) Total bilirubin (test code = 1974-2) 0.4 mg/dL 0.2-1.2 Alkaline phosphatase (test code = 6768-6) 38 U/L 35-144 AST (test code = 1920-8) 25 U/L 10-35 ALT (test code = 1742-6) 21 U/L 9-46 LIN (test code = LIN) FASTING:YESFASTING: YES RAC (test code = RAC) Performing Organization Info rmation: Site ID: RGA Name: [facility] Address: [address] [place] [phone] Director: Baldev Briscoe Lab Interpretation (test code = 19049-5) Abnormal [facility] with platelet and [id number] 21:29:00* Test Item Value Reference Range Interpretation Comments WBC (test code = 6690-2) 5.8 3.8- 10.8 Thousand/uL RBC (test code = 789-8) 3.32 4.20- 5.80 Million/uL L HGB (test code = 718-7) 11.9 g/dL 13.2-17.1 L HCT (test code = 4544-3) 33.8 % 38.5-50 L MCV (test code = 787-2) 101.8 fL 80-100 H MCH (test code = 785-6) 35.8 pg 27-33 H MCHC (test code = 786-4) 35.2 g/dL 32-36 RDW (test code = 788-0) 11.5 % 11-15 Platelet count (test code = 777-3) 223 140- 400 Thousand/u L MPV (test code = 776-5) 9.5 fL 7.5-12.5 Neutrophils, absolute (test code = 751-8) 3666 1,500 - 7,80 0 cells/uL Lymphocytes, absolute (test code = 731-0) 1357 850- 3,900 c ells/uL Monocytes, absolute (test code = 742-7) 429 200- 950 cells /uL Eosinophils, absolute (test code = 711-2) 319 15- 500 cell s/uL Basophils, absolute (test code = 704-7) 29 0- 200 cells/u L Neutrophils (test code = 770-8) 63.2 % Lymphocytes (test code = 736-9) 23.4 % Monocytes (test code = 5905-5) 7.4 % Eosinophils (test code = 713-8) 5.5 % Basophils + RC (test code = 706-2) 0.5 % LIN (test code = LIN) FASTING:YESFASTING: YES RAC (test code = RAC) Performing Organization Info rmation: Site ID: KWASI Name: [facility] Address: [address] [place] [phone] Director: Baldev Briscoe Lab Interpretation (test code = 26394-3) Abnormal [facility] [id number] 08:12:00* Test Item Value Reference Range Interpretation Comments Cholesterol, total (test code = 2093-3) 117 mg/dL <200 HDL cholesterol (test code = 2085-9) 43 mg/dL > OR = 40 Triglycerides (test code = 2571-8) 85 mg/dL <150 LDL cholesterol calculated (test code = 45011-9) 57 mg/dL (calc) Reference range: <100 Desirable range <100 mg/dL for primary prevention; <70 mg/dL for patients with CHD or diabetic patients with > or = 2 CHD risk factors. LDL-C is now calculated using the Earl-Jolene calculation, which is a validated novel method providing better accuracy than the Friedewald equation in the estimation of LDL-C. Earl SS et al. SHIVAM. 2013;310(19): 2887-4453 (http:/ /education.SimpleDeal/faq/BEL829) Cholesterol/HDL ratio (test code = 9830-1) 2.7 <5.0 (calc) Non-HDL cholesterol (test code = 52055-0) 74 <130 mg/dL ( calc) For patients with diabetes plus 1 major ASCVD risk factor, treating to a non-HDL-C goal of <100 mg/dL (LDL-C of <70 mg/dL) is considered a therapeutic option. LIN (test code = LIN) FASTING:YESFASTING: YES RAC (test code = RAC) Performing Organization Info rmation: Site ID: KWASI Name: [facility] Address: [address] [place] [phone] Director: Baldev Briscoe [facility] [id number] 08:12:00* Test Item Value Reference Range Interpretation Comments Vitamin B12 (test code = 2132-9) 364 pg/mL 200-1100 Please Note: Although the reference range for [id number] is 200-1100 pg/mL, it has been reported that between5 and 10% of patients with values between 200 and 400pg/mL may experience neuropsychiatric and hematologicabnormalities due to occult B12 deficiency; less than 1%of patients with values above 400 pg/mL will have symptoms. LIN (test code = LIN) FASTING:YESFASTING: YES RAC (test code = RAC) Performing Organization Info rmation: Site ID: K[facility]ASI Name: [facility] Address: [address] [place] [phone] Director: Baldev Annika BartonLuis Fel[facility] [id number] 08:12:00* Test Item Value Reference Range Interpretation Comments TSH (test code = 3016-3) 2.42 0.40- 4.50 mIU/L LIN (test code = LIN) FASTING:YESFASTING: YES RAC (test code = RAC) Performing Organization Info rmation: Site ID: KWASI Name: [facility] Address: [address] [place] [phone] Director: Baldev [facility] [id number] 08:12:00* Test Item Value Reference Range Interpretation Comments WBC (test code = 6690-2) 5.7 3.8- 10.8 Thousand/uL RBC (test code = 789-8) 3.56 4.20- 5.80 Million/uL L HGB (test code = 718-7) 12.6 g/dL 13.2-17.1 L HCT (test code = 4544-3) 36.6 % 38.5-50 L MCV (test code = 787-2) 102.8 fL 80-100 H MCH (test code = 785-6) 35.4 pg 27-33 H MCHC (test code = 786-4) 34.4 g/dL 32-36 RDW (test code = 788-0) 11.6 % 11-15 Platelet count (test code = 777-3) 215 140- 400 Thousand/u L MPV (test code = 776-5) 9.5 fL 7.5-12.5 LIN (test code = LIN) FASTING:YESFASTING: YES RAC (test code = RAC) Performing Organization Info rmation: Site ID: KWASI Name: [facility] Address: [address] [place] [phone] Director: Baldev Briscoe Lab Interpretation (test code = 14368-1) Abnormal Dairy MethodistURINALYSIS, COMPLETE, WITH REFLEX TO [id number] 08:12:00 * Test Item Value Reference Range Interpretation Comments Color, UA (test code = 5778-6) YELLOW YELLOW Appearance (test code = 5767-9) CLEAR CLEAR Specific gravity, urine (test code = 5811-5) 1.022 1.001-1.0 35 pH, urine (test code = 5803-2) 6.0 5.0-8.0 Glucose, urine (test code = 76821-3) NEGATIVE NEGATIVE Bilirubin, UA (test code = 5770-3) NEGATIVE NEGATIVE Ketones, UA (test code = 2514-8) NEGATIVE NEGATIVE Occult blood, urine (test code = 5794-3) NEGATIVE NEGATIVE Protein, UA (test code = 87562-7) NEGATIVE NEGATIVE Nitrite, UA (test code = 5802-4) NEGATIVE NEGATIVE Leukocyte esterase, UA (test code = 5799-2) NEGATIVE NEGATIVE WBC, UA (test code = 5821-4) NONE SEEN < OR = 5 /HPF RBC, UA (test code = 65861-9) NONE SEEN < OR = 2 /HPF Squamous epithelial cells, UA (test code = 36177-7) NONE SEEN < OR = 5 /HPF Bacteria, UA (test code = 5769-5) NONE SEEN NONE SEEN /HPF Hyaline casts, UA (test code = 5796-8) NONE SEEN NONE SEEN /LPF Reflex (test code = 630-4) NO CULTURE INDICATED LIN (test code = LIN) FASTING:YESFASTING: YES RAC (test code = RAC) Performing Organization Info rmation: Site ID: RGA Name: [facility] Address: [address] [place] [phone] Director: Baldev Briscoe [facility]
--- NOTE | 2020-01-01 06:37 | Diagnostic Imaging Report ---
EXAMINATION: Head CT without contrast. HISTORY:Hallucinations. COMPARISON:None. TECHNIQUE: Multidetector axial images were obtained from the foramen magnum to the vertex without contrast. The images were reconstructed using brain and bone algorithms. Thin section brain images were reformatted into coronal and sagittal planes. Dose modulation, iterative reconstruction, and/or weight based adjustment of the mA/kV was utilized to reduce the radiation dose to as low as reasonably achievable. Intravenous contrast: None IMAGE QUALITY: Acceptable. FINDINGS: Skull/scalp: No lytic or blastic. lesions. No surgical changes. Parenchyma: Nonspecific few, scattered supratentorial white matter hypodensity are likely related to small vessel ischemic changes. Focal hypodensity in medial aspect of left thalamus represents chronic lacunar infarct. No acute hemorrhage, mass or acute major vascular territorial infarct. Arteries: No density suggestive of thrombosis. Atherosclerotic calcification in bilateral carotid siphon. Dural sinuses: No abnormal density suggestive of thrombosis. Ventricles: No hydrocephalus or displacement. Extra-axial spaces: No abnormal density. Brain volume: Normal for age. Craniocervical junction: No mass, Chiari malformation, or basilar invagination. Sella: No mass. Paranasal/mastoid sinuses: Imaged portions unremarkable. Incidental finding: Chronic fracture deformity of the medial wall of left orbit. IMPRESSION: No acute intracranial abnormality. Mild supratentorial white matter microvascular ischemic changes. 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 Signed by: Dr. Sophia Cifuentes M.D. on 01/01/2020 6:33 AM
--- NOTE | 2020-01-01 06:54 | Diagnostic Imaging Report ---
EXAMINATION: CHEST SINGLE (PORTABLE) INDICATION: ^HALLUCINATIONS ^[id number] ^0610 ^Y COMPARISON: None FINDINGS: AP view TUBES and LINES: None. LUNGS: Lungs are well inflated. Lateral right upper lobe mild haziness. Linear right lower lobe opacification, likely linear atelectasis. PLEURA: No significant pleural effusion or pneumothorax. HEART AND MEDIASTINUM: The cardiomediastinal silhouette is unremarkable. BONES AND SOFT TISSUES: No acute osseous lesion. Soft tissues are unremarkable. UPPER ABDOMEN: No free air under the diaphragm. IMPRESSION: Lateral right upper lobe mild haziness, could be artifactual due to overlying soft tissue attenuation or represent pneumonia in the appropriate clinical context. Right lower lobe linear atelectasis/scarring. Signed by: Dr. Michael Bond MD on 01/01/2020 6:51 AM
[2020-01-01 07:04] LABS: CLARITY,URINE CLEAR (CLEAR); COLOR,URINE YELLOW (YELLOW)
[2020-01-01 07:05] LABS: BILIRUBIN,URINE NEGATIVE (NEGATIVE); KETONES,URINE 1+ (NEGATIVE); LEUKOCYTE ESTERASE ,URINE NEGATIVE (NEGATIVE); NITRITE,URINE NEGATIVE (NEGATIVE); PROTEIN,URINE DIPSTICK TRACE (NEGATIVE); URINE UROBILINOGEN 0.2 mg/dL (0.2 - 1)
[2020-01-01 07:10] LABS: BACTERIA,URINE RARE /HPF; EPITHELIAL CELLS,URINE FEW /LPF; RBC,URINE 0-5 /HPF (0-5); WBC,URINE (MAN) 0-5 /HPF (0-5)
[2020-01-01] MEDS ORDERED: AZITHROMYCIN 500MG/NS 250 ML 250 ML IV STA (07:25)
--- OUTSIDE RECORDS SUMMARY | 2020-01-01 07:47 | XMS REPORT | Clinical Summary ---
Author Author [facility] Organization [facility] Address Unknown Phone Unavailable Care Team Providers Care Stapler Coil Unit Name Role Phone Bev Ramirez MD PCP [...] unit capsule capsule mouth daily. Active vitamin [id number] acid Take by mouth 0 0.5-1 mg [...] Added automatically from request for christiano escobar [id number] Intestinal mass 10/01/2017 Abnormal cardiovascular stress test [...] Bev Ramirez MD 06/10/2019 Refill Internal Medicine Bev Ramirez MD 05/09/2019 Refill Internal Medicine Bev [...] REPAIR; Surgeon: Barron Cancino MD; Lo cation: [facility]; Service: General; Laterality : Right; Medical devices from this surgery are i n the Implants section. COLONOSCOPY 09/14/2017 N/A Procedure: colo noscopy with bx and injected 4cc of spot to ricardo mass; Surgeon: Samantha Rasheed MD; Location: [facility]; Service : Gastroenterology; Laterality: N/A; diverticulosis, colon mass, hemorrhoids HEMICOLECTOMY, RIGHT, 10/01/2017 Abdomen/N/A Procedur e: LAPAROSCOPIC RIGHT HEMICOLECTOMY; LAPAROSCOPIC Surgeon: Barron Cancino MD; Location: [facility]; Service: General; Laterality : N/A; Medical devices from this surgery are i n the Implants section. COLONOSCOPY COLONOSCOPY 10/21/2018 N/A Procedure: COLO NOSCOPY with bx; Surgeon: Samantha Rasheed MD; Location: [facility]; Service: Gastroenterology; Laterality: N/A; diverticulosis, [...] CDT Blood Pressure 67 01/27/2019 10:38 AM BOOKING OFFICER Pulse 36.4 C (97.6 F) 01/27/2019 10:38 AM BOOKING OFFICER Temperature 16 01/27/2019 10:38 AM BOOKING OFFICER Respiratory Rate 97% 01/27/2019 10:38 AM BOOKING OFFICER Oxygen Saturation - - Inhaled Oxygen Concentration [...] ot Implanted Type Area Manufactur er 11/09/2020 [id number] / / Bard Mesh Perfix Plugs Large Perfix IPM GRAFTS Right: [place]slee in DAVOL, A Plug,1.6&Quot; X 1.90&Quot; (4.1cm BARD X 4.8cm) - [id number] Implanted: Qty: 1 on 06/09/2016 by Barron Cancino MD at [facility] [id number] / / Clip Ligtng Weck Hemoclip Plus W/ Medical N/A: N/A WECK Tape Ti Med Lg - [id number] Clips for CLOSURE Implanted: Qty: 1 on 10/01/2017 by Internal SYS TEMS Barron Cancino MD at [facility] [id number] / / Clip Ligtng Weck Hemoclip Plus W/ Medical N/A: N/A TELEFLEX Tape Ti Lg - [id number] Clips for MEDICAL Implanted: Qty: 1 on 10/01/2017 by Internal Barron Cancino MD at [facility] [id number] / / Clip Ligtng Weck Hemoclip Plus W/ Medical N/A: N/A TELEFLEX Tape Ti Lg - [id number] Clips for MEDICAL Implanted: Qty: 1 on 10/01/2017 by Internal Barron Cancino MD at [facility] 10/12/2021 [id number] / / [id number] [employer] Titanium Ligating Clips, Surgical N/A: N/A Medium (Cartridge Of 6 Clips, Pack Fixation Of 30 Cartridges) Device Implanted: Qty: 1 on 10/01/2017 by Barron Cancino MD at [facility] [id number] / / Clip Ligtng Hrzn Med Ti Strl 6ea/Cq Surgical N/A: N/A WECK - [id number] Implants; CLOSURE Implanted: Qty: 1 on 10/01/2017 by Expanders; SYS TEMBarron Baumann MD at [facility] Extenders; HOSPITAL Surgical Wires Procedures [...] HORMONE 10:31 AM CDT adult medical [facility] with abnormal findings Depression, unspecified depression type [...] general PANEL 10:31 AM CDT [facility] Depression, unspecified depression type [...] and differential (11/15/2019 9:15 AM CDT) Pathologist [facility] WBC 5.8 3.8 - 10.8 [facility] Thousand/uL DIAGNOSTICS [place] RBC 3.32 (L) 4.20 - 5.80 [facility] Million/uL [facility] [place] HGB 11.9 (L) 13.2 - 17.1 g/dL [facility] [place] HCT 33.8 (L) 38.5 - 50.0 % [facility] [employer] [place] MCV 101.8 (H) 80.0 - 100.0 fL [facility] [place] MCH 35.8 (H) 27.0 - 33.0 pg [facility] [place] MCHC 35.2 32.0 - 36.0 g/dL [facility] [place] RDW 11.5 11.0 - 15.0 % [facility] [place] Platelet count 223 140 - 400 [facility] Thousand/uL DIAGNOSTICS [place] MPV 9.5 7.5 - 12.5 fL [facility] [employer] [place] Neutrophils, 3,666 1,500 - 7,800 [facility] absolute cells/uL [facility] [place] Lymphocytes, 1,357 850 - 3,900 cells/uL [facility] absolute [facility] [place] Monocytes, 429 200 - 950 cells/uL [facility] absolute [facility] [place] Eosinophils, 319 15 - 500 cells/uL [facility] absolute [facility] [place] Basophils, 29 0 - 200 cells/uL [facility] absolute [facility] [place] Neutrophils 63.2 % [employer] [place] Lymphocytes 23.4 % [employer] [place] Monocytes 7.4 % [facility] [place] Eosinophils 5.5 % [facility] [employer] [place] Basophils + RC 0.5 % [employer] [place] Specimen Blood Narrative Performed At FASTING:YES [facility] FASTING: YES Resulting Agency Comment Performing Organization Information: Site ID: RGA Name: [facility] Address: [address] [place] [phone] Director: Baldev Briscoe Performing Organization Address City/State/ZIP Code P [place] Number [facility] [employer] [place] [address] [phone] * Comprehensive metabolic panel (11/15/2019 9:15 AM CDT) Only the most recent of 2 results within the time period is included. Glucose 102 (H) 65 - 99 mg/dL [facility] Comment: DIAGNOSTICS Fasting [place] reference interval For someone without known diabetes, a glucose value between 100 and 125 mg/dL is consistent with prediabetes and should be confirmed with a follow-up test. BUN 14 7 - 25 mg/dL [employer] [facility] Creatinine 1.21 (H) 0.70 - 1.18 mg/dL [facility] Comment: DIAGNOSTICS For patients >49 years of age, [place] the reference limit for Creatinine is approximately 13% higher for people identified as -Citizen Of [place]. EGFR Non-Afr. 59 (L) > OR = 60 [facility] Citizen [place] mL/min/1.73m2 DIAGNOST[facility] [place] EGFR 68 > OR = 60 [facility] Citizen [place] mL/min/1.73m2 [facility] [place] BUN/creatinine 12 6 - 22 (calc) [facility] ratio [facility] [place] Sodium 138 135 - 146 mmol/L [facility] [place] Potassium 4.4 3.5 - 5.3 mmol/L [facility] [place] Chloride 106 98 - 110 mmol/L [facility] [place] CO2 26 20 - 32 mmol/L [facility] [place] Calcium 9.9 8.6 - 10.3 mg/dL [facility] [place] Protein 6.9 6.1 - 8.1 g/dL [facility] [place] Albumin, S 4.0 3.6 - 5.1 g/dL [facility] [place] Globulin, total 2.9 1.9 - 3.7 g/dL [facility] (calc) DIAGNOSTICS [place] Albumin/globuli 1.4 1.0 - 2.5 (calc) [facility] n ratio DIAGNOSTICS [place] Total bilirubin 0.4 0.2 - 1.2 mg/dL [facility] [place] Alkaline 38 35 - 144 U/L [facility] phosphatase [facility] [place] AST 25 10 - 35 U/L [facility] [place] ALT 21 9 - 46 U/L [facility] [place] Specimen Blood Narrative Performed At FASTING:YES [facility] FASTING: YES Resulting Agency Comment Performing Organization Information: Site ID: RGA Name: [facility] Address: [address] [place] [phone] Director: Baldev Briscoe Performing Organization Address City/State/ZIP Code P [place] Number [facility] [employer] [place] [address] [phone] * URINALYSIS, COMPLETE, WITH REFLEX TO CULTURE (08/01/2019 10:31 AM CDT) Color, UA YELLOW YELLOW [facility] [place] Appearance CLEAR CLEAR [facility] [place] Specific 1.022 1.001 - 1.035 [facility] gravity, urine DIAGNOSTICS [place] pH, urine 6.0 5.0 - 8.0 [facility] [place] Glucose, urine NEGATIVE NEGATIVE [facility] [place] Bilirubin, UA NEGATIVE NEGATIVE [facility] [place] Ketones, UA NEGATIVE NEGATIVE [facility] [place] Occult blood, NEGATIVE NEGATIVE [facility] urine [facility] [place] Protein, UA NEGATIVE NEGATIVE [facility] [place] Nitrite, UA NEGATIVE NEGATIVE [facility] [place] Leukocyte NEGATIVE NEGATIVE [facility] esterase, UA [facility] [place] WBC, UA NONE SEEN < OR = 5 /HPF [facility] [place] RBC, UA NONE SEEN < OR = 2 /HPF [facility] [place] Squamous NONE SEEN < OR = 5 /HPF [facility] epithelial DIAGNOSTICS cells, UA [place] Bacteria, UA NONE SEEN NONE SEEN /HPF [facility] [place] Hyaline casts, NONE SEEN NONE SEEN /LPF [facility] UA [facility] [place] Reflex NO CULTURE INDICATED [facility] DIAGNOSTICS [place] Specimen Narrative Performed At FASTING:YES [facility] FASTING: YES Resulting Agency Comment Performing Organization Information: Site ID: RGA Name: [facility] Address: [address] [place] [phone] Director: Baldev Briscoe Performing Organization Address City/State/ZIP Code P lico Number [facility] [address] [phone] * CBC hemogram (08/01/2019 10:31 AM CDT) WBC 5.7 3.8 - 10.8 [facility] Thousand/uL DI[facility]NOST[facility] [place] RBC 3.56 (L) 4.20 - 5.80 [facility] Million/uL [facility] [place] HGB 12.6 (L) 13.2 - 17.1 g/dL [facility] [place] HCT 36.6 (L) 38.5 - 50.0 % [facility] [place] MCV 102.8 (H) 80.0 - 100.0 fL [facility] [place] MCH 35.4 (H) 27.0 - 33.0 pg [facility] [place] MCHC 34.4 32.0 - 36.0 g/dL [facility] [place] RDW 11.6 11.0 - 15.0 % [facility] [place] Platelet count 215 140 - 400 [facility] Thousand/uL DIAGNOSTICS [place] MPV 9.5 7.5 - 12.5 fL [employer] DIAGNOSTICS [place] Specimen Blood Narrative Performed At FASTING:YES [facility] FASTING: YES Resulting Agency Comment Performing Organization Information: Site ID: RGA Name: [facility] Address: [address] [place] [phone] Director: Baldev Briscoe Performing Organization Address City/State/ZIP Code P [place] Number [facility] [address] [phone] * Thyroid stimulating hormone (08/01/2019 10:31 AM CDT) TSH 2.42 0.40 - 4.50 mIU/L [facility] Specimen Blood Narrative Performed At FASTING:YES [facility] FASTING: YES Resulting Agency Comment Performing Organization Information: Site ID: Heath Name: [facility] Lab Address: [address] [place] [phone] Director: Baldev Briscoe Performing Organization Address [facility] [place] P lico Number [employer] [place] [phone] * Vitamin B12 level (08/01/2019 10:31 AM CDT) Vitamin B12 364 200 - 1,100 pg/mL [facility] Comment: DIAGNOSTICS Please Note: Although the [place] reference range for vitamin B12 is 200-1100 [...] Performing Organization Information: Site ID: Heath Name: [employer] [facility] Lab Address: [address] [place] [phone] Director: Baldev Briscoe Performing Organization Address [facility] P lico Number [employer] [place] [id number] * Lipid panel (08/01/2019 10:31 AM CDT) Cholesterol, 117 <200 mg/dL [facility] total DIAGNOSTICS [place] HDL cholesterol 43 > OR = 40 mg/dL [facility] Triglycerides 85 <150 mg/dL [facility] LDL cholesterol 57 mg/dL (calc) [facility] calculated Comment: DIAGNOSTICS Reference range: <100 [place] Desirable range <100 mg/dL for primary prevention; <70 mg/dL for patients with CHD or diabetic patients with > or = 2 CHD risk factors. LDL-C is now calculated using the Bo calculation, which is a validated novel method providing better accuracy than the Friedewald equation in the estimation of LDL-C. Earl SAVAGE et al. SHIVAM. 2013;310(19): 8967-8804 (http://education.Flutter.Composeright/faq/KJY806) Cholesterol/HDL 2.7 <5.0 (calc) [facility] ratio DIAGNOSTICS [place] Non-HDL 74 <130 mg/dL (calc) [facility] cholesterol Comment: DIAGNOSTICS For patients with diabetes [place] plus 1 major ASCVD risk factor, treating to a non-HDL-C goal of <100 mg/dL (LDL-C of <70 mg/dL) is considered a therapeutic option. Specimen Blood Narrative Performed At FASTING:YES [facility] FASTING: YES Resulting Agency Comment Performing Organization Information: Site ID: RGA Name: [facility] Address: [address] [place] [phone] Director: Baldev Briscoe Performing Organization Address City/State/ZIP Code P lico Number [facility] [place] [address] [place] [address] after 12/31/2018 Insurance Type Payer Benefit Subscriber ID Effective Phone Address Plan / Dates Group PPO HUMANA MEDICARE HUMANA [id number] 2012-P MEDICARE resent PPO/PFFS/E RS [facility] Advance Directives For more information, please contact: [phone] 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
--- OUTSIDE RECORDS SUMMARY | 2020-01-01 07:47 | XMS REPORT | Continuity of Care Document ---
Author Author [facility] t Organization [facility] Address [address] [place] [address] Phone Unavailable Care Team Providers Care Hop Grower Name Role Phone James FOSTER, Maulik PCP Annika GUTIERREZ Attphys Unavailable Steven RENE, Sara Attphys Unavailable Mualik Ramirez MD Attphys Verna RENE, Omar Attphys Unavailable Payers Payer Name Policy Type Policy Number Effective Date Expiration Date S [facility]/PFFS/ERS [id number] 2012 00:00:00 Darrel Gipson Problems Condition Name Condition Details Condition Category Status Onset Date Resolution Date Last Treatment Date Treating Clinician Comments Source History of colon polyps History of colon polyps Disease Active 2018-10-06 00:00:00 Overview: Added automaticall y from request for surgery [id number] Darrel Gipson Intestinal mass Intestinal mass Disease Active 2017-10-01 00:00:00 Darrel Gipson Abnormal cardiovascular stress test Abnormal cardiovascular stre ss test Disease Active 2015-05-11 00:00:00 [place] Atherosclerosis of coronary artery Atherosclerosis of coronary a rtery Disease Active 2015-05-11 00:00:00 [place] Atopic rhinitis Atopic rhinitis Disease Active 2015-05-01 00:00:00 Darrel Gipson Bronchitis Bronchitis Disease Active 2015-05-01 00:00:00 Darrel Gipson Cough Cough Disease Active 2015-05-01 00:00:00 Darrel Gipson Echocardiogram abnormal Echocardiogram abnormal Disease Active 2015-05-01 00:00:[address] Abnormal electrocardiogram Abnormal electrocardiogram Disease Active [...] airway disease Disease Active 2015-05-01 00:00:00 Darrel leggett Allergies, Adverse Reactions, Alerts Allergy Name Allergy Type Status Severity Reaction(s) Onset Date Inacti ve Date Treating Clinician Comments Source Sulfur-8 Propensity to adverse reactions to drug Active Hives 2015-05-23 00:00:00 Darrel Fernandez t Diphenhydramine Hcl Propensity to adverse reactions to drug Active Hives 2015-05-01 00:00:00 Darrel Meth odist Sulfa (Sulfonamide Antibiotics) Propensity to adverse reactions to drug Active Hives 2015-05-01 00:00:00 Anderson Buckleyist Family History Family Member Diagnosis Comments Start Date Stop Date Source Natural brother Balta disease [place] Natural brother No Known Problems Vishnu lovell [place] Natural father CABG/Stent [facility] thodist Natural sister No Known Problems Kendall Gipson Social History Social Habit Start Date Stop Date Quantity Comments Source Sex Assigned At Kendall Gipson Cigarettes smoked current (pack per day) - Reported 00:00:00 2019-10-30 00:00:00 Darrel Gipson Cigarette pack-years 2019-10-30 00:00:00 2019-10-30 00:00:00 Darrel Gipson Tobacco use and exposure 2019-10-30 00:00:00 2019-10-30 00:00:00 Ambrose alcazar used Darrel Gipson Alcohol intake 2019-10-30 00:00:00 [...] b y mouth daily. Darrel Gipson vitamin [id number] acid 0.5-1 mg tablet 2019-10-30 13:25:05 Yes [...] 100 MG capsule 2019-10-30 13:25:05 Yes 100mg [id number] Take 100 mg by mouth 3 (three) [...] Gipson Zoster 2014-12-25 00:00:00 Completed [place] Pneumococcal Conjugate 13-Valent 2014-05-16 00:00:00 Compl eted Darrel Gipson Tdap 2014-05-16 00:00:00 Completed [place] FLUZONE HIGH-DOSE PF 2013-03-15 00:00:00 Completed Darrel [...] temperature 2019-01-27 10:38:00 36.44 Charlene Zakia portillo Mosque Respiratory rate 2019-01-27 10:38:00 16 /min [place] Oxygen saturation in Arterial blood by Pulse oximetry 2018-03 10:38:00 97 /min Darrel Gipson Procedures Procedure Date / Time Performed Performing Clinician Sour e CBC WITH PLATELET AND DIFFERENTIAL 2019-11-15 [...] End Date/Time Encounter Type Admission Type [facility] Facility Care Department Encounter ID Source 2019-10-30 00:00:00 2019-10-31 00:00:00 Outpatient MAULIK BERRY [facility] [id number] Darrel Gipson 2019-07-28 00:00:00 2019-07-28 00:00:00 Outpatient MAULIK BERRY [facility] [id number] Darrel Gipson Results Test Description Test Time Test Comments Results Result Comments Source CHEST SINGLE (PORTABLE) 2020-01-01 06:49:00 [facility] : 1945 Sex: M [place] [id number] Patient Name: DELONTE HODGE MR #: [id number] : 1945 Age/Sex: 74/M Req #: [id number] Adm Physician: Ordered by: MILES GUTIERREZ MD Report #: [id number] Location: ER Room/Bed: Procedure: [id number] DX/CHEST SINGLE (PORTABLE) Exam Date: 01/01/20 Exam Time: 609 REPORT STATUS: Signed EXAMINATION: CHEST SINGLE (PORTABLE) INDICATION: HALLUCINATIONS [id number] Y COMPARISON: None FINDINGS: AP view TUBES and LINES: None. LUNGS: Lungs are well inflated. Lateral right upper lobe mild haziness. Linear right lower lobe opacification, likely linear atelectasis. PLEURA: No significant pleural effusion or pneumothorax. HEART AND MEDIASTINUM: The cardiomediastinal silhouette is unremarkable. BONES AND SOFT TISSUES: No acute osseous lesion. Soft tissues are unremarkable. UPPER ABDOMEN: No free air under the diaphragm. IMPRESSION: Lateral right upper lobe mild haziness, could be artifactual due to overlying soft tissue attenuation or represent pneumonia in the appropriate clinical context. Right lower lobe linear atelectasis/scarring. Signed by: Dr. Michael Mcrae MD on 01/01/2020 6:51 AM Dictated By: MICHAEL MCRAE MD 0 Transcribed By: ANDREW on 01/01/20650 COPY TO: MIELS GUTIERREZ MD CT BRAIN WO 2020-01-01 06:30:00 [facility] : 1945 Sex: [place] [address] Patient Name: DELONTE HODGE MR #: [id number] : 1945 Age/Sex: 74/M Req #: [id number] Adm Physician: Ordered by: MILES GUTIERREZ MD Report #: [id number] Location: ER Room/Bed: Procedure: [id number] CT/CT BRAIN WO Exam Date: 01/01/20 Exam Time: 0600 REPORT STATUS: Signed EXAMINATION: Head CT without contrast. HISTORY:Hallucinations. COMPARISON:None. TECHNIQUE: Multidetector axial images were obtained from the foramen magnum to the vertex without contrast. The images were reconstructed using brain and bone algorithms. Thin section brain images were reformatted into coronal and sagittal planes. Dose modulation, iterative reconstruction, and/or weight based adjustment of the mA/kV was utilized to reduce the radiation dose to as low as reasonably achievable. Intravenous contrast: None IMAGE QUALITY: Acceptable. FINDINGS: Skull/scalp: No lytic or blastic. lesions. No surgical changes. Parenchyma: Nonspecific few, scattered supratentorial white matter hypodensity are likely related to small vessel ischemic changes. Focal hypodensity in medial aspect of left thalamus represents chronic lacunar infarct. No acute hemorrhage, mass or acute major vascular territorial infarct. Arteries: No density suggestive of thrombosis. Atherosclerotic calcification in bilateral carotid siphon. Dural sinuses: No abnormal density suggestive of thrombosis. Ventricles: No hydrocephalus or displacement. Extra-axial spaces: No abnormal density. Brain volume: Normal for age. Craniocervical junction: No mass, Chiari malformation, or basilar invagination. Sella: No mass. Paranasal/mastoid sinuses: Imaged portions unremarkable. Incidental finding: Chronic fracture deformity of the medial wall of left orbit. IMPRESSION: No acute intracranial abnormality. Mild supratentorial white matter microvascular ischemic changes. 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 Signed by: Dr. Sophia Cifuentes M.D. on 01/01/2020 6:33 AM Dictated By: SOPHIA CIFUENTES MD 2 Transcribed By: ANDREW on 01/01/20632 COPY TO: MILES GUTIERREZ MD Comprehensive metabolic panel 2019-11-15 21:29:00 Test Item [...] is approximately 13% higher for peopleidentified as -Martiniquais. EGFR Non-Afr. Martiniquais (test code = 2775) 59 > OR = 60 mL /min/1.73m2 L EGFR (test code = 03178-5) 68 > OR = 60 mL/min/1.73m2 BUN/creatinine ratio (test code = 3097-3) 12 6- 22 (calc) Sodium (test code = 2951-2) 138 mmol/L 135-146 Potassium (test code = 2823-3) 4.4 mmol/L 3.5-5.3 Chloride (test code = 2075-0) 106 mmol/L 98-110 CO2 (test code = 2027-9) 26 mmol/L 20-32 Calcium (test code = 09672-2) 9.9 mg/dL 8.6-10.3 Protein (test code = 2885-2) 6.9 g/dL 6.1-8.1 Albumin, S (test code = 1751-7) 4.0 g/dL 3.6-5.1 Globulin, total (test code = 89388-4) 2.9 1.9- 3.7 g/dL (c alc) Albumin/globulin ratio (test code = 1759-0) 1.4 1.0- 2.5 ( calc) Total bilirubin (test code = 1974-) 0.4 mg/dL 0.2-1.2 Alkaline phosphatase (test code = 6768-6) 38 U/L 35-144 AST (test code = 1920-8) 25 U/L 10-35 ALT (test code = 1742-6) 21 U/L 9-46 LIN (test code = LIN) FASTING:YESFASTING: YES RAC (test code = RAC) Performing Organization Info rmation: Site ID: RGA Name: [facility] Address: [address] [place] [address] Director: Baldev Briscoe Lab Interpretation (test code = 55580-0) Abnormal [facility] with [facility] and [id number] 21:29:00* Test Item Value Reference Range Interpretation [...] Organization Info rmation: Site ID: RGA Name: [facility] Address: [address] [place] [address] Director: Baldev Briscoe Lab Interpretation (test code = 55590-0) Abnormal [facility] [id number] 08:12:00* Test Item Value Reference Range Interpretation Comments Cholesterol, total (test code = 2093-3) 117 mg/dL <200 HDL cholesterol (test code = 2085-9) 43 mg/dL > OR = 40 Triglycerides (test code = 2571-8) 85 mg/dL <150 LDL cholesterol calculated (test code = 76614-1) 57 mg/dL (calc) Reference range: <100 Desirable range <100 mg/dL for primary prevention; <70 mg/dL for patients with CHD or diabetic patients with > or = 2 CHD risk factors. LDL-C is now calculated using the Bo calculation, which is a validated novel method providing better accuracy than the Friedewald equation in the estimation of LDL-C. Earl SS et al. SHIVAM. 2013;310(19): 2480-2992 (http:/ /education.baseclick/faq/SNX434) Cholesterol/HDL ratio (test code = 9830-1) 2.7 <5.0 (calc) Non-HDL cholesterol (test code = 62077-1) 74 <130 mg/dL ( calc) For patients with diabetes plus 1 major ASCVD risk factor, treating to a non-HDL-C goal of <100 mg/dL (LDL-C of <70 mg/dL) is considered a therapeutic option. LIN (test code = LIN) FASTING:YESFASTING: YES RAC (test code = RAC) Performing Organization Info rmation: Site ID: RGA Name: [facility] Address: [address] [place] [address] Director: Baldev GipsonVitamin B12 [id number] 08:12:00* Test Item Value Reference Range Interpretation Comments Vitamin B12 (test code = 2132-9) 364 pg/mL 200-1100 Please Note: Although the reference range for [id number] is 200-1100 pg/mL, it has been reported that between5 and 10% of patients with values between 200 and 400pg/mL may experience neuropsychiatric and hematologicabnormalities due to occult B12 deficiency; less than 1%of patients with values above 400 pg/mL will have symptoms. LIN (test code = LIN) FASTING:YESFASTING: YES RASHEL (test code = RAC) Performing Organization Info rmation: Site ID: RGA Name: [facility] Address: [address] [place] [phone] Director: Baldev Briscoe Rojo MosqueThyroid stimulating [id number] 08:12:00* Test Item Value Reference Range Interpretation Comments TSH (test code = 3016-3) 2.42 0.40- 4.50 mIU/L LIN (test code = LIN) FASTING:YESFASTING: YES RAC (test code = RAC) Performing Organization Info rmation: Site ID: KWASI Name: [facility] Address: [address] [place] [address] Director: Baldev Briscoe [facility] [id number] 08:12:00* Test Item Value Reference Range Interpretation [...] Organization Info rmation: Site ID: KWASI Name: [facility] Address: [address] [place] [address] Director: Baldev Briscoe Lab Interpretation (test code = 23335-9) Abnormal [facility] Methodist[facility]INALYSIS, COMPLETE, WITH REFLEX TO [id number] 08:12:00 * Test Item Value Reference Range Interpretation Comments Color, UA (test code = 5778-6) YELLOW YELLOW Appearance (test code = 5767-9) CLEAR CLEAR Specific gravity, urine (test code = 5811-5) 1.022 1.001-1.0 35 pH, urine (test code = 5803-2) 6.0 5.0-8.0 Glucose, urine (test code = 26021-4) NEGATIVE NEGATIVE Bilirubin, UA (test code = 5770-3) NEGATIVE NEGATIVE Ketones, UA (test code = 2514-8) NEGATIVE NEGATIVE Occult blood, urine (test code = 5794-3) NEGATIVE NEGATIVE Protein, UA (test code = 12485-1) NEGATIVE NEGATIVE Nitrite, UA (test code = 5802-4) NEGATIVE NEGATIVE Leukocyte esterase, UA (test code = 5799-2) NEGATIVE NEGATIVE WBC, UA (test code = 5821-4) NONE SEEN < OR = 5 /HPF RBC, UA (test code = 69681-9) NONE SEEN < OR = 2 /HPF Squamous epithelial cells, UA (test code = 06467-4) NONE SEEN < OR = 5 /HPF Bacteria, UA (test code = 5769-5) NONE SEEN NONE SEEN /HPF Hyaline casts, UA (test code = 5796-8) NONE SEEN NONE SEEN /LPF Reflex (test code = 630-4) NO CULTURE INDICATED LIN (test code = LIN) FASTING:YESFASTING: YES RAC (test code = RAC) Performing Organization Info rmation: Site ID: RGA Name: [facility] Address: [address] [place] [phone] Director: Baldev Gipson
[2020-01-01] MEDS: CEFTRIAXONE SOD 1 GM/NS 50 ML 50 ML IV SCH (10:25)
[2020-01-01] MEDS ORDERED: SODIUM CHLORIDE 0.9% 250ML 250 ML ONE (10:32)
--- NOTE | 2020-01-01 15:54 | NUR ---
SPOKE WITH PT ABOUT DPA, [facility] HAS HOME HEALTH WITH [employer] MEDICARE BUT ERNIE HAS HIS WALLET AND WILL HAVE TO GT NUMBER WHEN SHE COMES TO GET HIM
--- NOTE | 2020-01-01 15:56 | NUR ---
CALLED TO GET INSURANCE LEFT MESSAGE FOR RETURN CALL
[2020-01-01] MEDS ORDERED: ZYRTEC10 M3 (17:03)
[2020-01-01] MEDS ORDERED: SYMBICORT 16010.2 GM INH (17:03)
[2020-01-01] MEDS ORDERED: SPIRIVA18 MCG INH (17:03)
[2020-01-01] MEDS ORDERED: D3 + K2 DOTS 11 EACH PO (17:05)
[2020-01-01] MEDS ORDERED: WELLBUTRIN SR150 MG PO (17:19)
[2020-01-01] MEDS ORDERED: VITAMIN B-12500 MCG PO (17:19)
[2020-01-01] MEDS ORDERED: AMANTADINE100 MG PO (17:19)
[2020-01-01] MEDS ORDERED: CARBIDOPA-LEVO1 EACH PO (17:19)
[2020-01-01] MEDS ORDERED: VOLTAREN-XR100 MG PO (17:19)
--- NOTE | 2020-01-01 19:08 | NUR ---
Dr Hilliard was called to obtain the order for PO pain meds to replace 4 mg morphine iv Q 3 h , order, to continue previous pain management .
[2020-01-01] MEDS ORDERED: BUPROPION HCL SR 150 MG TAB PO ONE (20:30)
[2020-01-01] MEDS ORDERED: HALOPERIDOL 1 MG TAB PO PRN (20:30)
[2020-01-01] MEDS: AMANTADINE HCL 100 MG CAP PO SCH (20:49)
[2020-01-01] MEDS: CARBIDOPA/LEVODOPA 10/100 TAB PO SCH (20:49)
[2020-01-02] VITALS (8 sets, daily range): BP systolic 109–150; BP diastolic 60–81
[2020-01-02 06:47] LABS: BASOPHILS % 0.5 % (0.0-1.0); EOSINOPHILS # (AUTO) 0.2 (0.0-0.4); EOSINOPHILS % 1.8 % (0.0-6.0); HEMATOCRIT 32.4 % (38.2-49.6); HEMOGLOBIN 10.6 g/dL (14.0-18.0); LYMPHOCYTES # (AUTO) 0.9 (1.0-3.2); LYMPHOCYTES % 10.4 % (18.0-39.1); MEAN CORPUSCULAR HEMOGLOBIN 35.3 pg (28-32); MEAN CORPUSCULAR HGB CONC 32.7 g/dL (31-35); MONOCYTES # (AUTO) 0.6 (0.2-0.8); MONOCYTES % 6.4 % (4.4-11.3); NEUTROPHILS # (AUTO) 7.1 (2.1-6.9); NEUTROPHILS % 80.4 % (38.7-80.0); PLATELET COUNT 184 x10e3/uL (140-360); RED CELL DISTRIBUTION WIDTH 11.7 % (11.7-14.4)
[2020-01-02] MEDS: TIOTROPIUM 18 MCG INH POWDER INH SCH (07:04)
[2020-01-02] MEDS: BUDESONIDE/FORMOTEROL 160/4.5MCG INHALER INH SCH (07:04)
[2020-01-02 07:12] LABS: ALBUMIN 3.2 g/dL (3.5-5.0); ALBUMIN/GLOBULIN RATIO 0.8 (0.8-2.0); ANION GAP 15.1 mmol/L (8-16); CALCIUM 10.1 mg/dL (8.4-10.2); CREATININE, SERUM 1.2 mg/dL (0.72-1.25); POTASSIUM 4.1 mmol/L (3.5-5.1)
--- NOTE | 2020-01-02 07:50 | NUR ---
PATIENT IS AWAKE, ALERT TO SELF, AND IN STABLE CONDITION WITH NO S/S OF RESPIRATORY DISTRESS. NO PAIN VOICED. TELEMETRY APPLIED. SKINS INTACT. THREE RAILS RAISED AND BED ALARM APPLIED. CALL LIGHT IS WITHIN REACH, PATIENT INSTRUCTED TO CALL FOR ASSISTANCE NEEDED.
[2020-01-02 08:06] LABS: PLATELET ESTIMATE ADEQUATE; RBC MORPHOLOGY COMMENT NORMAL
[2020-01-02 08:07] LABS: PLATELET MORPHOLOGY COMMENT FEW LARGE
[2020-01-02] MEDS: CEFTRIAXONE SOD 1 GM/NS 50 ML 50 ML IV SCH (08:16)
[2020-01-02] MEDS: AMANTADINE HCL 100 MG CAP PO SCH ×3 (08:17→21:00)
[2020-01-02] MEDS: CARBIDOPA/LEVODOPA 10/100 TAB PO SCH ×3 (08:17→21:00)
[2020-01-02] MEDS: LORATADINE 10 MG TAB PO SCH (08:17)
[2020-01-02] MEDS: DICLOFENAC SODIUM 100 MG PO SCH (08:18)
[2020-01-02] MEDS: BUPROPION HCL SR 150 MG TAB PO SCH (08:18)
[2020-01-02] MEDS: CYANOCOBALAMIN 1,000 MCG TAB PO SCH (08:18)
[2020-01-02] MEDS ORDERED: CYANOCOBALAMIN 500 MG PO SCH (09:00)
[2020-01-02] MEDS ORDERED: HALOPERIDOL LACTATE 5 MG/ML VIAL IM PRN (13:30)
--- NOTE | 2020-01-02 14:39 | NUR ---
Nutrition Screen Note RD Recommendation for Physician: -Continue current diet as ordered -If PO intake <50% of meals, offer Ensure Enlive Plan of Care: RD following, monitoring for tolerance and adequacy Nutrition reason for involvement: Nutrition Risk Trigger Primary Diagnose(s): pneumonia PMH: no H/P in meditech Ht: 71 in Wt: 155 lb BMI: 21.6 kg/m2 IBW:[address] Assessment: (01/02/20) Chart reviewed. Labs and meds reviewed. Pt is a 74 year old male admitted with pneumonia. Attempted to speak to pt, but he did not respond. Unable to obtain nutrition history from pt at this time. There are no previous weights in chart. It is recorded that pt consumed 100% of dinner yesterday. However, RN stated pt only ate some of his eggs this morning and did not eat his lunch yet at time of visit this afternoon. If PO intake is <50% of meals, recommend to offer Ensure Enlive. Will continue to monitor. Current Diet: cardiac Malnutrition Evaluation (01/02/20) Unable to assess. Will re-evaluate at follow-up as appropriate. Diet Education Needs Assessment: Diet education is not indicated at this time Nutrition Care Level: low Signed: Alexa Francis, RD, LD
[2020-01-02] MEDS ORDERED: ZIPRASIDONE 20 MG VIAL IM ONE (16:22)
[2020-01-02] MEDS ORDERED: ZIPRASIDONE 20 MG VIAL IM PRN (17:15)
--- NOTE | 2020-01-02 19:35 | NUR ---
PATIENT IS AGITATED AND COMBATIVE- PATIENT IN STABLE CONDITION WITH NO S/S OF RESPIRATORY DISTRESS. TELEMETRY APPLIED. SKINS INTACT. RAILS RAISED AND BED ALARM APPLIED. SITTER PRESENT IN ROOM. CALL LIGHT IS WITHIN REACH, PATIENT INSTRUCTED TO CALL FOR ASSISTANCE NEEDED. BEDSIDE SHIFT REPORT GIVEN TO ONCOMING NURSE.
[2020-01-02] MEDS: LORAZEPAM INJ 2 MG/ML VIAL IV PRN (19:40)
--- NOTE | 2020-01-02 19:40 | NUR ---
Bedside shift report received from morning nurses. Pt agitated and combative. Medicated with prn Ativan. 1:1 sitter at bedside. Call light within reach. Bed low and locked.
[2020-01-03] VITALS (10 sets, daily range): BP systolic 95–149; BP diastolic 43–80
--- NOTE | 2020-01-03 08:40 | NUR ---
RECEIVED PATIENT IN BED SLEEPING. RESPIRATIONS EVEN AND BREATHING UNLABORED. NO PAIN VERBALIZED AT THIS TIME. CALL LIGHT WITHIN REACH. BED ALARM ON. WILL CONTINUE TO MONITOR.
[2020-01-03] MEDS: DICLOFENAC SODIUM 100 MG PO SCH (09:00)
[2020-01-03] MEDS: CEFTRIAXONE SOD 1 GM/NS 50 ML 50 ML IV SCH (09:18)
[2020-01-03] MEDS: CYANOCOBALAMIN 1,000 MCG TAB PO SCH (09:19)
[2020-01-03] MEDS: BUPROPION HCL SR 150 MG TAB PO SCH (09:19)
[2020-01-03] MEDS: AMANTADINE HCL 100 MG CAP PO SCH (09:19)
[2020-01-03] MEDS: LORATADINE 10 MG TAB PO SCH (09:20)
[2020-01-03] MEDS: CARBIDOPA/LEVODOPA 10/100 TAB PO SCH ×3 (09:20→20:34)
[2020-01-03] MEDS: BUDESONIDE/FORMOTEROL 160/4.5MCG INHALER INH SCH (09:30)
[2020-01-03] MEDS: TIOTROPIUM 18 MCG INH POWDER INH SCH (09:30)
--- NOTE | 2020-01-03 11:53 | Consultation ---
DATE OF CONSULTATION: Neurology Consultation. HISTORY OF PRESENT ILLNESS: A 74-year-old male with a history of tremors since 1997, as per the patient about two weeks ago and recently two to five weeks ago I guess, he is evaluated for possible Parkinson disease. An MRI was done, showed a chronic stroke or subacute stroke affecting the left thalamus. His physician diagnosed with Parkinson's disease, and started him on Sinemet and amantadine 100 t.i.d., and then he has been having increasing neurocognitive changes, hallucinations, and confusion, comes in now with pneumonia, tremors, and intermittent agitation. Currently, he is pretty with it. The patient states that he does not believe he has Parkinson's disease. He states . He has normal movements. He does not believe that the Sinemet has helped him. However, it is questionable did not realize. REVIEW OF SYSTEMS: In any case, on review of systems, the patient already denies any symptoms other than tremors. I spoke to the family, the hallucinations, agitation and delirium are pretty common with him. Otherwise, a 14-point review of system is negative. PHYSICAL EXAMINATION: VITAL SIGNS: Stable. He is afebrile. His blood pressure is 132/76, heart rate is 89 and regular. HEENT: Normal extraocular muscles. Interrupted saccades. Pupils are reactive. There is no ptosis. He does have normal upgaze. EXTREMITIES: He does have tremors in bilateral upper extremities, right side more so than the left. It is resting pill-rolling tremor. He does have rigidity or cogwheel rigidity. On exam, his reflexes are symmetric. He is . He has no pain all. CARDIOVASCULAR: Regular rate and rhythm. PULMONARY: Clear. NEUROLOGIC: There is no ataxia on exam. His strength is 5/5. 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 Recommendation right now to stop the amantadine and start titrating down the Sinemet. An outpatient followup for Neuro with movement disorder specialist for possible Parkinsonian syndrome, given that it has been going on since 1997. It is possible that he has Parkinson's disease, although he does not manifest all of the symptoms of it, at least not on today's exam and this may be possibly due to the presence of Sinemet at this time. CT/DaTscan will be warranted as an outpatient and a new plan as needed rather than atypical and classic and psychosis would also be warranted as they can make symptoms worse for Parkinson's disease and worse psychotic hallucinations. MD JOSE F PRAJAPATI/LEAH /[id number]
--- NOTE | 2020-01-03 17:14 | Consultation ---
DATE OF CONSULTATION: 01/03/2020 Psychiatric Consultation REASON FOR CONSULTATION: To evaluate the patient's psychosis. HISTORY OF PRESENT ILLNESS: The patient is 74 years old male admitted to the hospital for pneumonia, psych consult is for psychosis. As per the record, he has tremors and has been evaluated for possible Parkinson's disease. He also has chronic stroke and was taken amantadine as well as Sinemet. Nursing staff called yesterday reports that the patient has been very combative. He required multiple staff members during his agitation to help relax him and given the injection for agitation and he received p.r.n. Geodon last night or yesterday. The patient is lying on the bed today. He is alert, awake, and oriented to self, and year, but he thinks the current month is April when it is December. The patient claims he is very happy, not reporting any suicidal thoughts or thoughts of hurting others. Confused and not really making sense when he has been at the conversation. Appears to be able to answer yes or no questions mostly. His tremor is noticeable. He is calm at this time during the assessment. I consider the patient has been very restless, trying to get out of bed. He is confused, combative. He is not eating well. He is getting p.r.n. Ativan last night. PAST PSYCHIATRIC HISTORY: The patient has history of tremors. No psychiatric history reported. He is unable to provide further details about past suicide attempts. Unknown if he has history of alcohol or drug abuse. Toxicology is not done. FAMILY HISTORY: Unable to answers. SOCIAL HISTORY: The patient currently lives with his . MENTAL STATUS EXAM: The patient is an elderly male. He is thin looking, pleasant at the time, confused. Mood is anxious. Affect is blunt. Psychomotor state is passive. Denies suicidal or homicidal ideation. Denies any hallucination. Thought process is loose. No paranoid elicited. Insight and judgment are limited. Memory appears to be grossly impaired. CURRENT MEDICATION: 1. Claritin. 2. Vitamin B12. 3. Wellbutrin 150 mg p.o. daily. 4. Ceftriaxone. 5. Ativan 0.5 IV q.6 hours as needed. 6. Spiriva. 7. Symbicort. 8. Voltaren. CURRENT LABORATORY DATA: WBC 8.77, RBC 3, hemoglobin 10.6, hematocrit 32.4, and platelets 184. Sodium 141, potassium 4.1, chloride 108, CO2 of 22, BUN 16, creatinine 1.2. AST 25, ALT 25. ASSESSMENT: 1. Unspecified psychosis. 2. Rule out dementia. PLAN: 1. Geodon p.r.n. IM was added yesterday but will discontinue today. 2. Continue Zyprexa 2.5 mg p.o. q.6 hours p.r.n. 3. Continue Ativan 0.5 IV q.6 hours as needed. 4. Continue Wellbutrin 150 mg p.o. daily. 5. Add Zyprexa 2.5 mg p.o. at bedtime. 6. Monitor for agitation. Thank you for this consultation. Dictated by Shey Ramos PA-C Gurdeep Bellamy MD QTV/MODL /[id number]
--- NOTE | 2020-01-03 19:22 | NUR ---
PATIENT RESTING IN BED. RESPIRATIONS EVEN AND BREATHING UNLABORED. NO COMPLAINTS OF PAIN AT THIS TIME. SITTER WITH PATIENT WITH 3 RAILS UP. END OF SHIFT REPORT GIVEN TO ONCOMING NURSE.
[2020-01-03] MEDS ORDERED: OLANZAPINE 5 MG TAB PO SCH (21:00)
[2020-01-03] MEDS: LORAZEPAM INJ 2 MG/ML VIAL IV PRN (22:45)
[2020-01-04] VITALS (7 sets, daily range): BP systolic 118–152; BP diastolic 56–77
[2020-01-04] MEDS: OLANZAPINE 5 MG TAB PO PRN (02:59)
[2020-01-04] MEDS: LORAZEPAM INJ 2 MG/ML VIAL IV PRN ×3 (05:15→23:28)
[2020-01-04] MEDS: BUDESONIDE/FORMOTEROL 160/4.5MCG INHALER INH SCH (06:00)
[2020-01-04] MEDS: TIOTROPIUM 18 MCG INH POWDER INH SCH (06:00)
[2020-01-04] MEDS: CEFTRIAXONE SOD 1 GM/NS 50 ML 50 ML IV SCH (08:20)
[2020-01-04] MEDS: DICLOFENAC SODIUM 100 MG PO SCH (08:21)
[2020-01-04] MEDS: CYANOCOBALAMIN 1,000 MCG TAB PO SCH (08:21)
[2020-01-04] MEDS: LORATADINE 10 MG TAB PO SCH (08:21)
[2020-01-04] MEDS: BUPROPION HCL SR 150 MG TAB PO SCH (08:21)
[2020-01-04] MEDS: CARBIDOPA/LEVODOPA 10/100 TAB PO SCH ×3 (08:21→21:05)
--- NOTE | 2020-01-04 09:28 | NUR ---
stable 98.5 63 97/70 calm HEENT: Normal extraocular muscles. Interrupted saccades. Pupils are reactive. There is no ptosis. He does have normal upgaze. EXTREMITIES: He does have tremors in bilateral upper extremities, right side more so than the left. It is resting pill-rolling tremor. He does have rigidity or cogwheel rigidity. On exam, his reflexes are symmetric. He has no pain all. CARDIOVASCULAR: Regular rate and rhythm. PULMONARY: Clear. NEUROLOGIC: There is no ataxia on exam. His strength is 5/5. 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 holding amantadine decreaesd sinemet outpt CTDAT scan sleep study as outpt
--- NOTE | 2020-01-04 15:32 | Progress Note ---
DATE: 01/04/2020 Psychiatric Progress Note SUBJECTIVE: The patient evaluated and events noted. The patient is in the room. He is sleeping. Sitter is in the room, who reports that the patient has been sleeping the whole day. He did not eat any breakfast or lunch. Last night, he was up all night and was getting p.r.n. IM medication. He was restless, confused, and combative last night as per staff. He is getting his scheduled Zyprexa, but still needed p.r.n. IV and p.o. medication last night. No side effects were reported. ASSESSMENT: 1. Unspecified psychosis. 2. Rule out dementia. PLAN: 1. To continue Zyprexa 2.5 mg p.o. q.6 hours as needed. 2. Continue Ativan p.r.n. IV. 3. Continue Wellbutrin. 4. Increase Zyprexa to 5 mg p.o. at bedtime. 5. Monitor for agitation. Dictated by Shey Ramos PA-C Gurdeep Bellamy MD QTV/MODL /[id number]
--- NOTE | 2020-01-04 19:40 | NUR ---
PATIENT RESTING IN BED. ON 3L O2 VIA NASAL CANNULA. RESPIRATIONS EVEN, BREATHING UNLABORED, NO DISTRESS NOTED. NO COMPLAINTS OF PAIN VERBALIZED AT THIS TIME. SITTER AT THE BEDSIDE. REPORT GIVEN TO ONCOMING NURSE AT THE BEDSIDE.
[2020-01-04] MEDS ORDERED: OLANZAPINE 5 MG TAB PO SCH (21:00)
[2020-01-05] VITALS (7 sets, daily range): BP systolic 101–131; BP diastolic 65–101
[2020-01-05] MEDS: LORAZEPAM INJ 2 MG/ML VIAL IV PRN ×2 (05:28→20:11)
[2020-01-05] MEDS: BUDESONIDE/FORMOTEROL 160/4.5MCG INHALER INH SCH (06:00)
[2020-01-05] MEDS: TIOTROPIUM 18 MCG INH POWDER INH SCH (06:00)
[2020-01-05] MEDS: CEFTRIAXONE SOD 1 GM/NS 50 ML 50 ML IV SCH (08:30)
[2020-01-05] MEDS: LORATADINE 10 MG TAB PO SCH (09:00)
[2020-01-05] MEDS: CARBIDOPA/LEVODOPA 10/100 TAB PO SCH (09:00)
[2020-01-05] MEDS: DICLOFENAC SODIUM 100 MG PO SCH (09:00)
[2020-01-05] MEDS: CYANOCOBALAMIN 1,000 MCG TAB PO SCH (09:00)
--- NOTE | 2020-01-05 09:33 | NUR ---
rigidity and tremors 98.5 63 97/70 calm HEENT: Normal extraocular muscles. Interrupted saccades. Pupils are reactive. There is no ptosis. He does have normal upgaze. EXTREMITIES: He does have tremors in bilateral upper extremities, right side more so than the left. It is resting pill-rolling tremor. He does have rigidity or cogwheel rigidity. On exam, his reflexes are symmetric. He has no pain all. CARDIOVASCULAR: Regular rate and rhythm. PULMONARY: Clear. NEUROLOGIC: There is no ataxia on exam. His strength is 5/5. increase tremors and muscle tone ASSESSMENT AND PLAN: The patient comes to my attention for possible Parkinson's disease and Parkinsonian psychosis, possibly medication effect or delirium secondary to pneumonia. he seems to have been benefitting from amantadine as his tremors and rigidity are worse will initiate neupro to compensate for decrase amantadine start entacapone to suplement sinemet sleep study as outpt
[2020-01-05] MEDS: BUPROPION HCL 75 MG TAB PO SCH ×2 (11:30→16:00)
--- NOTE | 2020-01-05 15:24 | NUR ---
PT nathanael completed and pt ambulated ~200 ft x 2 bouts with a RW. Pt will need a RW for home use. PT D/C recommendation: Home with home health. Addendum: 01/05/20 at 1525 by Otf Hurley PT Amended: Links added.
[2020-01-05] MEDS: OLANZAPINE 5 MG TAB PO PRN (15:59)
[2020-01-05] MEDS ORDERED: QUETIAPINE FUMARATE 25 MG TAB PO PRN (16:15)
[2020-01-05] MEDS ORDERED: CARBIDOPA/LEVODOPA 10/100 TAB PO SCH (17:00)
[2020-01-05] MEDS: QUETIAPINE FUMARATE 25 MG TAB PO SCH (20:11)
[2020-01-06] VITALS (7 sets, daily range): BP systolic 90–150; BP diastolic 54–89
[2020-01-06] MEDS: LORAZEPAM INJ 2 MG/ML VIAL IV PRN ×3 (02:58→18:00)
[2020-01-06] MEDS: TIOTROPIUM 18 MCG INH POWDER INH SCH (06:00)
[2020-01-06] MEDS: BUDESONIDE/FORMOTEROL 160/4.5MCG INHALER INH SCH (06:00)
[2020-01-06] MEDS: CEFTRIAXONE SOD 1 GM/NS 50 ML 50 ML IV SCH ×3 (08:30→21:03)
[2020-01-06] MEDS: RASAGILINE 1 MG TAB PO SCH (09:00)
[2020-01-06] MEDS: CYANOCOBALAMIN 1,000 MCG TAB PO SCH (09:00)
[2020-01-06] MEDS: LORATADINE 10 MG TAB PO SCH (09:00)
[2020-01-06] MEDS: PRAMIPEXOLE DIHYDROCHLORIDE 0.25 MG TAB PO SCH (09:00)
[2020-01-06] MEDS: DICLOFENAC SODIUM 100 MG PO SCH (09:00)
--- NOTE | 2020-01-06 10:06 | NUR ---
awake calm 97.6 99 104/79 calm HEENT: Normal extraocular muscles. Interrupted saccades. Pupils are reactive. There is no ptosis. He does have normal upgaze. EXTREMITIES: He does have tremors in bilateral upper extremities, right side more so than the left. It is resting pill-rolling tremor. He does have rigidity or cogwheel rigidity. On exam, his reflexes are symmetric. He has no pain all. CARDIOVASCULAR: Regular rate and rhythm. PULMONARY: Clear. NEUROLOGIC: There is no ataxia on exam. His strength is 5/5. increase tremors and muscle tone ASSESSMENT AND PLAN: The patient comes to my attention for possible Parkinson's disease and Parkinsonian psychosis, possibly medication effect or delirium secondary to pneumonia. he seems to have been benefitting from amantadine as his tremors and rigidity are worse will initiate neupro to compensate for decrase amantadine do not have entacapone on formulary decreased wellbrutin. adjusted parkinsonian meds outpt CTDAT scan sleep study as outpt
--- NOTE | 2020-01-06 12:01 | Progress Note ---
DATE: 01/06/2020 CHIEF COMPLAINT/HISTORY OF PRESENT ILLNESS: This is a 74-year-old white man, whose primary treating diagnosis is pneumonia and Parkinson's disease and likely parkinsonian of psychosis. The patient seems to be doing a bit better today in regard to his mental status according to nursing staff. The patient is currently ambulating with physical therapy. The patient underwent a chest x-ray on January 01, 2020, which revealed right lower lobe linear atelectasis/scarring as well as lateral right upper lobe mild haziness. REVIEW OF SYSTEMS: As per HPI. PHYSICAL EXAMINATION: GENERAL: He is awake, semi-alert, has obvious dementia. VITAL SIGNS: Blood pressure 102/88, pulse 92, respiratory rate 16, temperature 98.3, oxygen 92% on room air. Height 5 feet 11 inches, weight 155 pounds, BMI 21. INTEGUMENT: Skin is warm and dry. No pallor, jaundice, or diaphoresis. HEENT: Icteric sclerae. Moist mucous membranes. NECK: Supple. CARDIOVASCULAR: Tachycardic rate and rhythm. LUNGS: Coarse breath sounds bilaterally. ABDOMEN: Benign. EXTREMITIES: No edema or deformity. NEUROLOGIC: The patient has a slow antalgic gait. He ambulates with a walker. He has obvious tremors. DIAGNOSES: 1. Aspiration pneumonia, likely. 2. Parkinson's disease, likely. 3. Parkinsonian psychosis, resolved. 4. Dementia, likely. PLAN: 1. Repeat chest x-ray. 2. Change ceftriaxone from 1 g daily to twice a day. 3. Add intravenous azithromycin. 4. Check white blood cell count as well as renal function. 5. Continue mobilize physical therapy. 6. We will order bedside swallow evaluation by speech therapy and proceed with modified barium swallow if necessary. I spent 25 minutes in the care of this patient. MD SASHA Gross/LEAH /[id number] MTDDotty
[2020-01-06 12:06] LABS: BASOPHILS % 0.4 % (0.0-1.0); EOSINOPHILS # (AUTO) 0.2 (0.0-0.4); EOSINOPHILS % 1.8 % (0.0-6.0); HEMATOCRIT 40.9 % (38.2-49.6); LYMPHOCYTES # (AUTO) 1.1 (1.0-3.2); LYMPHOCYTES % 11.5 % (18.0-39.1); MEAN CORPUSCULAR HEMOGLOBIN 34.5 pg (28-32); MEAN CORPUSCULAR HGB CONC 31.8 g/dL (31-35); MEAN CORPUSCULAR VOLUME 108.5 fL (81-99); MONOCYTES # (AUTO) 0.5 (0.2-0.8); MONOCYTES % 4.9 % (4.4-11.3); NEUTROPHILS # (AUTO) 7.8 (2.1-6.9); NEUTROPHILS % 80.9 % (38.7-80.0); PLATELET COUNT 242 x10e3/uL (140-360); RED BLOOD COUNT 3.77 x10e6/uL (4.3-5.7); RED CELL DISTRIBUTION WIDTH 11.9 % (11.7-14.4)
[2020-01-06] MEDS: AZITHROMYCIN 500MG/NS 250 ML 250 ML IV SCH (12:17)
--- NOTE | 2020-01-06 12:18 | NUR ---
CXR DONE AT BEDSIDE.
[2020-01-06 12:23] LABS: BLOOD UREA NITROGEN 31 mg/dL (7-26); BUN/CREATININE RATIO 28 (6-25); CALCIUM 11.7 mg/dL (8.4-10.2); CARBON DIOXIDE 20 mmol/L (22-29); CHLORIDE 114 mmol/L (98-107); CREATININE, SERUM 1.12 mg/dL (0.72-1.25); EST GLOMERULAR FILTRATION RATE > 60 ML/MIN (60-); GLUCOSE 125 mg/dL (74-118); SODIUM 149 mmol/L (136-145)
--- NOTE | 2020-01-06 13:47 | Diagnostic Imaging Report ---
EXAMINATION: CHEST SINGLE (PORTABLE) INDICATION: Pneumnonia COMPARISON: Chest radiograph on 12/22/2019. FINDINGS: TUBES and LINES: None. LUNGS: Normal lung volumes. No interval change in mild patchy haziness in the right lateral midlung. Right basilar atelectasis. PLEURA: No pleural effusion or pneumothorax. HEART AND MEDIASTINUM: The cardiomediastinal silhouette is unremarkable. BONES AND SOFT TISSUES: No acute osseous lesion. Soft tissues are unremarkable. UPPER ABDOMEN: No free air under the diaphragm. IMPRESSION: No interval changes in mild patchy haziness in the right lateral midlung which may represent atelectasis and/or pneumonia in the proper clinical context. If additional imaging is required, a CT of the chest will add more information. Signed by: Criselda Fountain MD on 01/06/2020 1:44 PM
--- NOTE | 2020-01-06 19:08 | NUR ---
walking rounds complete, report given to on coming nurse.
--- NOTE | 2020-01-06 19:10 | NUR ---
Patient received lying in bed. AAO x 1. No signs of pain or respiratory distress. Safety measures in place. Sitter present. Call light within reach.
[2020-01-06] MEDS: QUETIAPINE FUMARATE 25 MG TAB PO SCH (20:52)
--- NOTE | 2020-01-06 22:36 | NUR ---
ST Note: Order for bedside swallow eval with MBS if necessary noted. Chart reviewed, case discussed with WALLY Francis, who reported pt choking with liquids this AM. Pt would benefit from an objective eval of swallow safety given history and current dx of PNA. Recommend modified barium swallow study to r/o aspiration and determine least restrictive diet. MBS cannot be completed until Wednesday. Will f/u Wednesday to complete recommended evaluation.
[2020-01-07] VITALS (11 sets, daily range): BP systolic 109–152; BP diastolic 63–87
[2020-01-07] MEDS: TIOTROPIUM 18 MCG INH POWDER INH SCH (06:00)
[2020-01-07] MEDS: BUDESONIDE/FORMOTEROL 160/4.5MCG INHALER INH SCH (06:00)
--- NOTE | 2020-01-07 06:48 | NUR ---
Walking rounds done. Bed-side shift report given to oncoming nurse. No acute distress noted.
[2020-01-07 07:03] LABS: ANION GAP 18.1 mmol/L (8-16); CALCIUM 11.7 mg/dL (8.4-10.2); CREATININE, SERUM 1.31 mg/dL (0.72-1.25); POTASSIUM 4.1 mmol/L (3.5-5.1)
--- NOTE | 2020-01-07 07:04 | NUR ---
Dr. Lisa Cote paged regarding "Routine Consult" . Reason : Hypercalcemia. A message was left on his voice-mail. Awaiting call back.
[2020-01-07 07:15] LABS: BASOPHILS % 0.2 % (0.0-1.0); EOSINOPHILS # (AUTO) 0.2 (0.0-0.4); EOSINOPHILS % 2.1 % (0.0-6.0); HEMOGLOBIN 13.3 g/dL (14.0-18.0); LYMPHOCYTES # (AUTO) 0.8 (1.0-3.2); LYMPHOCYTES % 9.5 % (18.0-39.1); MEAN CORPUSCULAR HEMOGLOBIN 35.3 pg (28-32); MEAN CORPUSCULAR HGB CONC 32.4 g/dL (31-35); MEAN CORPUSCULAR VOLUME 108.8 fL (81-99); MONOCYTES # (AUTO) 0.6 (0.2-0.8); MONOCYTES % 6.6 % (4.4-11.3); NEUTROPHILS # (AUTO) 6.9 (2.1-6.9); NEUTROPHILS % 81.2 % (38.7-80.0); PLATELET COUNT 208 x10e3/uL (140-360); RED BLOOD COUNT 3.77 x10e6/uL (4.3-5.7); RED CELL DISTRIBUTION WIDTH 11.7 % (11.7-14.4)
[2020-01-07] MEDS: LORATADINE 10 MG TAB PO SCH (09:00)
[2020-01-07] MEDS: BUPROPION HCL 75 MG TAB PO SCH (09:00)
[2020-01-07] MEDS: DICLOFENAC SODIUM 100 MG PO SCH (09:00)
[2020-01-07] MEDS: RASAGILINE 1 MG TAB PO SCH (09:00)
[2020-01-07] MEDS ORDERED: CARBIDOPA/LEVODOPA 10/100 TAB PO SCH (09:00)
[2020-01-07] MEDS: PRAMIPEXOLE DIHYDROCHLORIDE 0.25 MG TAB PO SCH (09:00)
[2020-01-07] MEDS: CYANOCOBALAMIN 1,000 MCG TAB PO SCH (09:00)
[2020-01-07] MEDS: CEFTRIAXONE SOD 1 GM/NS 50 ML 50 ML IV SCH ×2 (09:00→20:28)
[2020-01-07] MEDS ORDERED: DEXTROSE 5% 1,000 ML IV ONE (11:30)
[2020-01-07] MEDS: AZITHROMYCIN 500MG/NS 250 ML 250 ML IV SCH (11:45)
[2020-01-07 11:51] LABS: ALBUMIN 3.4 g/dL (3.5-5.0); BILIRUBIN,DIRECT 0.1 mg/dL (0.0-0.5)
--- NOTE | 2020-01-07 12:25 | Progress Note ---
DATE: 01/07/2020 CHIEF COMPLAINT/HISTORY OF PRESENT ILLNESS: This is a 74-year-old white man, whose primary treating diagnosis is [id number] confusion, secondary to metabolic encephalopathy from right-sided aspiration pneumonia. The patient most likely has underlying Parkinson disease. Previously, he was experiencing parkinsonian psychosis, but this seems to have resolved. The patient is resting comfortably today according to nursing staff. Blood work today revealed a white blood cell count of 8500 with 81% segmented neutrophils. Hemoglobin is 13.3 g/dL. The patient's BUN and creatinine are 39 and 1.31 respectively. Today's potassium is 4.1, serum bicarbonate is 20. The patient's serum calcium is 11.7 g/dL. Chest x-ray performed on January 06, 2020, reveals mild patchy haziness in the right lateral mid lung. Today's blood work revealed a sodium of 150, and a chloride level 116. REVIEW OF SYSTEMS: As per HPI. PHYSICAL EXAMINATION: GENERAL: He is asleep. He looks comfortable. Does not appear in any obvious respiratory distress. There is a sitter at bedside. VITAL SIGNS: Height 5 feet 11 inches, weight 155 pounds. BMI 21. Blood pressure 140/72, pulse 86, respiratory rate 22, oxygen saturation 99% on room air, and temperature 98.6. INTEGUMENT: Skin is warm and dry. No pallor, jaundice, or diaphoresis. HEENT: Anterior sclerae. Moist mucous membranes. NECK: Supple. CARDIOVASCULAR: Distant heart sounds. Regular rate and rhythm. LUNGS: Coarse breath sounds bilaterally. ABDOMEN: Benign. EXTREMITIES: No edema or deformity. NEUROLOGIC: He is asleep at this time, but yesterday he was ambulating slowly with a rolling walker. Also, yesterday when awake, he had obvious tremors. DIAGNOSES: 1. Right-sided aspiration pneumonia. 2. Metabolic encephalopathy, secondary to pneumonia, resolving. 3. Parkinson disease, likely. 4. Parkinsonian psychosis, resolved. 5. Dementia, likely. 6. Dehydration (free water deficit). PLAN: 1. Continue intravenous antibiotics for the patient's likely right-sided aspiration pneumonia. 2. Consult Nephrology since the patient has hypercalcemia as well as a globulin gap. 3. Continue mobilize the patient with Physical therapy. 4. We will proceed with bedside swallow evaluation by Speech therapy and with modified barium swallow as necessary since he appears to have aspiration pneumonia. 5. We will order a correction facility evaluation. 6. We will start intravenous 5% dextrose water to treat the patient's free water deficit. I spent 35 minutes in the care of this patient. MD SASHA Gross/LEAH /[id number] MTDDotty
--- NOTE | 2020-01-07 13:45 | Consultation ---
DATE OF CONSULTATION: Initial Nephrology Consultation Report REASON FOR CONSULTATION: Hypercalcemia. HISTORY OF PRESENT ILLNESS: Mr. Edison Dimas is a 74-year-old male. He was brought to the emergency room because his family felt he was having some hallucinations. I am being consulted to see him because of hypercalcemia. His calcium was 11.7 on admission, but on the of this month a few days ago, his serum calcium was 10.1. It was on the upper limit of normal. The patient's family member is at bedside and states that at home, he was taking some pills that had calcium in it, but she does not know what it is. He was taking that about once a day and she says that also he has been taking some vitamin D [id number]. She also states that his p.o. intake has been poor over the past few weeks. PAST MEDICAL HISTORY: The patient has a history of Parkinson disease. FAMILY HISTORY: No other family history that I can ascertain. PAST SURGICAL HISTORY: Unknown. REVIEW OF SYSTEMS: As per HPI. MEDICATIONS: Currently, he is on some Rocephin. He is on quetiapine. He has been started on azithromycin. He is on Azilect, Mirapex, vitamin B12, Claritin, albuterol, and Seroquel. PHYSICAL EXAMINATION: VITAL SIGNS: Blood pressure 140/73, pulse 84, and respiratory rate is 20. GENERAL: The patient is a kind of ill-appearing male. HEENT: No increased JVD. CARDIOVASCULAR: Regular rate and rhythm. LUNGS: Decreased breath sounds at bases bilaterally. ABDOMEN: Positive bowel sounds. Nontender. EXTREMITIES: No edema, cyanosis, or clubbing. LABORATORY RESULTS: Sodium 150, potassium 4.1, chloride 116, bicarbonate 20, BUN and creatinine 39 and 1.31 respectively. Hemoglobin and hematocrit 13 and 41. Platelet count within normal limits. White count within normal limits. IMPRESSION: 1. Hypercalcemia. 2. Hypernatremia. 3. Acute kidney injury superimposed on chronic kidney disease. 4. Chronic kidney disease. PLAN: According to history, the patient has had decreased p.o. intake. Clinically, he appears dehydrated. He has a large free water deficit that would explain his hypernatremia. The patient also has hypercalcemia. According to the family, he has been taking perhaps some vitamin supplements. Family member does not know what the name of the medicine is, but it had calcium in it and he also was taking vitamin D. This could explain some of the hypercalcemia. However, I think we need to rule out primary hyperparathyroidism and also given the patient's age, multiple myeloma or monoclonal gammopathy also needs to be ruled out. I will check a PTH level and a calcium. We will check a phosphorus level. I will check a serum protein electrophoresis, urine protein electrophoresis, and immunofixation studies. I will check a renal ultrasound. I agree with giving D5 water at 100 mL an hour for at least 2 L. [place] through the IV fluid, we can give him some Lasix. This will help dump some of the calcium into the urine. Further therapeutic measures will be based on these initial studies. I will follow the patient with you. Thank you, Dr. Madsen, for allowing me to participate in the care of this patient with you. Ather MD JESSIE Lin/LEAH /[id number]
--- NOTE | 2020-01-07 19:05 | NUR ---
Waking round complete, report given to oncoming nurse.
--- NOTE | 2020-01-07 19:18 | NUR ---
Patient received asleep in bed. Arousable to tactile stimuli. No acute distress noted. Sitter at bedside. Fall precautions implemented. Call light within reach.
[2020-01-07] MEDS: QUETIAPINE FUMARATE 25 MG TAB PO SCH (20:28)
[2020-01-08 04:21] VITALS: BP 115/55
[2020-01-08 05:55] LABS: BASOPHILS % 0.5 % (0.0-1.0); EOSINOPHILS # (AUTO) 0.3 (0.0-0.4); EOSINOPHILS % 3.4 % (0.0-6.0); HEMATOCRIT 40.9 % (38.2-49.6); LYMPHOCYTES # (AUTO) 0.8 (1.0-3.2); LYMPHOCYTES % 11.3 % (18.0-39.1); MEAN CORPUSCULAR HEMOGLOBIN 34.6 pg (28-32); MEAN CORPUSCULAR HGB CONC 31.8 g/dL (31-35); MEAN CORPUSCULAR VOLUME 108.8 fL (81-99); MONOCYTES # (AUTO) 0.4 (0.2-0.8); NEUTROPHILS # (AUTO) 5.8 (2.1-6.9); NEUTROPHILS % 78.5 % (38.7-80.0); PLATELET COUNT 213 x10e3/uL (140-360); RED BLOOD COUNT 3.76 x10e6/uL (4.3-5.7); RED CELL DISTRIBUTION WIDTH 11.8 % (11.7-14.4)
[2020-01-08] MEDS: TIOTROPIUM 18 MCG INH POWDER INH SCH (06:00)
[2020-01-08] MEDS: BUDESONIDE/FORMOTEROL 160/4.5MCG INHALER INH SCH (06:00)
[2020-01-08 06:20] LABS: ALBUMIN 3.2 g/dL (3.5-5.0); ALBUMIN/GLOBULIN RATIO 0.7 (0.8-2.0); ANION GAP 15.4 mmol/L (8-16); CREATININE, SERUM 1.21 mg/dL (0.72-1.25); POTASSIUM 3.4 mmol/L (3.5-5.1)
--- NOTE | 2020-01-08 07:00 | NUR ---
RCD PT AT BED PT IS CONFUSED 1;1 SITTER WITH PT IS AGITATED IV PATENT BED LOW AND LOCKED CALL LIGHT IN REACH
[2020-01-08 08:01] VITALS: BP 125/75
[2020-01-08 08:42] VITALS: BP 125/75
[2020-01-08] MEDS: CYANOCOBALAMIN 1,000 MCG TAB PO SCH (08:46)
[2020-01-08] MEDS: PRAMIPEXOLE DIHYDROCHLORIDE 0.25 MG TAB PO SCH (08:46)
[2020-01-08] MEDS: LORATADINE 10 MG TAB PO SCH (08:46)
[2020-01-08] MEDS: BUPROPION HCL 75 MG TAB PO SCH (08:46)
[2020-01-08] MEDS: RASAGILINE 1 MG TAB PO SCH (09:00)
[2020-01-08] MEDS: DICLOFENAC SODIUM 100 MG PO SCH (09:00)
--- NOTE | 2020-01-08 09:48 | NUR ---
awake calm 98.1 141/81 68 calm HEENT: Normal extraocular muscles. Interrupted saccades. Pupils are reactive. There is no ptosis. He does have normal upgaze. EXTREMITIES: He does have tremors in bilateral upper extremities, right side more so than the left. It is resting pill-rolling tremor. He does have rigidity or cogwheel rigidity. On exam, his reflexes are symmetric. He has no pain all. CARDIOVASCULAR: Regular rate and rhythm. PULMONARY: Clear. NEUROLOGIC: There is no ataxia on exam. His strength is 5/5. increase tremors and muscle tone tremors less pronounced than on preivous exam ASSESSMENT AND PLAN: The patient comes to my attention for possible Parkinson's disease and Parkinsonian psychosis, possibly medication effect or delirium secondary to pneumonia. he seems to have been benefitting from amantadine as his tremors and rigidity are worse will initiate neupro to compensate for decrase amantadine do not have entacapone on formulary decreased wellbrutin. adjusted parkinsonian meds outpt CTDAT scan sleep study as outpt
[2020-01-08 10:58] VITALS: BP 93/68
--- NOTE | 2020-01-08 12:00 | NUR ---
PATIENT NEED PRESCRIPTION FOR MIRAPIX PAGED DR Judy GROVES HE SAID SEND THE PT DETAILS HE WILL SEND THE PRESCRIPTION TO THE PHARMACY ,AC TO DR Judy GROVES PAGEDotty BERNARD REGARDING THE DOSAGE HE SAID SAME DOSE AND ONE TIME DAILY
--- NOTE | 2020-01-08 12:45 | NUR ---
PATIENT WENT HOME IN SAFE CONDITION WITH HIS
--- NOTE | 2020-01-08 12:49 | NUR ---
Spoke with WALLY Martínez. States she asked Dr. Hernandez about home health and he stated that pt does not need home health, but that we can arrange RW, per PT's rec. She placed order in EMR. IMM letter discussed with pt's Shruthi at bedside. She verbalized understanding. Copy to . Signed copy placed in chart. Discussed order for rolling walker. Shruthi states her daughter just went and bought a rollator and that they have access to a rolling walker. Declined one from the hospital.
--- NOTE | 2020-01-09 09:31 | Diagnostic Imaging Report ---
PROCEDURE: X-RAY MODIFIED BARIUM SWALLOW COMPARISON: None. INDICATION: Aspiration Radiation Details: Fluoroscopy time: 3.0 minutes Cumulative dose: 8.6 mGy DISCUSSION: Fluoroscopic examination was performed in conjunction with speech pathology during swallowing a variety of thin and thick liquid consistencies. Provided images demonstrate laryngeal penetration and trace aspiration. CONCLUSION: Modified barium swallow demonstrating laryngeal penetration and trace aspiration. Please refer to the speech pathology report for further details. Signed by: Laila Pate MD on 01/09/2020 9:27 AM
--- NOTE | 2020-01-09 09:54 | Progress Note ---
DATE: 01/08/2020 Psychiatric Progress Note SUBJECTIVE: Upon evaluation today, the patient found to be in the room. He is alert, awake, and oriented to self. He is doing much better. He is eating and sleeping well. He is not combative. He denies any anxiety or depression. He states he is okay. Nurse dariuster reports that the patient is doing much, much better. ASSESSMENT: Unspecified psychosis. PLAN: 1. Continue with Seroquel 25 mg p.o. at bedtime. 2. Continue with Seroquel p.r.n. 3. Continue with Ativan p.r.n. p.o. 4. Monitor for agitation. Dictated by Shey Ramos PA-C Gurdeep Bellamy MD QTV/LEAH /[id number]
--- NOTE | 2020-01-10 07:00 | Progress Note ---
DATE: 01/05/2020 PSYCHIATRIC PROGRESS NOTE: SUBJECTIVE: The patient evaluated and events noted. The patient is in the room with a sitter. He is still very agitated and not sleeping at night. He is receiving p.r.n. medication as well as scheduled Zyprexa. He is still confused. The patient is still combative especially at night. I spoke to the today and she does have multiple questions for me and I attempt to answer her questions and concerns. At this time because the patient is not benefiting from Zyprexa, we will attempt to change to a different medication. ASSESSMENT: Unspecified psychosis. PLAN: 1. Discontinue Zyprexa 5 mg p.o. at bedtime. 2. Add Seroquel 25 mg p.o. at bedtime. 3. Discontinue Zyprexa p.r.n. 4. mg p.o. q.6 hours as needed. 5. Continue with p.r.n. medication. 6. Continue Wellbutrin as per Neurology. 7. The patient is on Neurology and Neurology will continue to manage these medications for him. 8. Monitor for agitation and discussed with nursing staff. Dictated by Shey Ramos PA-C Gurdeep Bellamy MD QTV/MODL /[id number]
== END 2020-01-08 12:45 | disposition home or self-care (01) | DRG 177 ==
LOC: ER 05:23 → ERHOLD 07:25 → MED/SURG2 08:49
DX: J69.0 Pneumonitis due to inhalation of food and vomit (principal); G93.41 Metabolic encephalopathy; E87.0 Hyperosmolality and hypernatremia; N17.9 Acute kidney failure, unspecified; F02.81 Dementia in other diseases classified elsewhere, unspecified severity, with behavioral disturbance; G20 Parkinson's disease; E83.52 Hypercalcemia; Z11.59 Encounter for screening for other viral diseases; E86.0 Dehydration; F28 Other psychotic disorder not due to a substance or known physiological condition
CPT/HCPCS: 36415; 70450; 71045; 74230; 80048; 80053; 80076; 81001; 82948; 85025; 93005; 94664; 97139; 99251; 99284; J0456; J0696; J1630; J2060; J3486; J7050; J7070